=== PATIENT | female | born 1945 | race Caucasian/White ===

== ENCOUNTER 2018-08-26 09:07 | Outpatient (CLI) | payer MEDICARE, BC, SELFPAY ==
[2018-08-26 14:52] LABS: TSH (W/Ref FT4) 0.98 uIU/mL (0.358-3.74)
== END 2018-08-26 09:27 ==
PROVIDERS: PCP Family Medicine; Visit Provider Family Medicine
DX: F41.9 Anxiety disorder, unspecified (principal); I10 Essential (primary) hypertension; E04.1 Nontoxic single thyroid nodule
CPT/HCPCS: 36415; 84443

== ENCOUNTER 2018-09-24 00:42 | Outpatient (CLI) | payer MEDICARE, BC, SELFPAY ==
--- NOTE | 2018-09-24 14:13 | DI.CT_ITS ---
SYMPTOMS/DIAGNOSIS: CHRONIC SINUSITIS, J32.9 CT SCAN OF THE SINUS: CT of sinuses was performed according to protocol. There is opacification of a few ethmoid air cells bilaterally. The frontal sinuses appear clear, as do the sphenoid sinuses. There is mild mucosal thickening in the left maxillary sinus. The right maxillary sinus is nearly completely opacified. There is thickening of the wall of the right maxillary sinus, likely reflecting sequelae of chronic sinusitis. The mastoid air cells are well pneumatized. The nasal septum is predominantly midline. The left turbinate and left ostiomeatal complex is unremarkable. There is opacification of the right middle turbinate and the right ostiomeatal complex. The orbits are unremarkable. IMPRESSION: Findings of chronic sinusitis affecting the right maxillary sinus.
== END 2018-09-24 01:02 ==
PROVIDERS: PCP Family Medicine; Visit Provider Family Medicine
DX: J32.0 Chronic maxillary sinusitis (principal)
CPT/HCPCS: 70486

== ENCOUNTER 2019-02-12 02:04 | Outpatient (CLI) | payer MEDICARE, BC, SELFPAY ==
[2019-02-12 10:39] LABS: ALT 19 U/L (12-78); AST 16 U/L (15-37); Albumin 3.6 g/dL (3.4-5.0); Alkaline Phosphatase 126 U/L (46-116); BUN 23 mg/dL (7-18); Bilirubin, Total 0.4 mg/dL (0.2-1.0); CREATININE 0.82 mg/dL (0.55-1.02); Calcium 8.6 mg/dL (8.5-10.1); Chloride 105 mmol/L (98-107); Cholesterol 193 mg/dL (50-200); Glucose 87 mg/dL (70-100); HDL Cholesterol 70 mg/dL (40-60); LDL CHOLESTEROL 107 mg/dL (<100); Potassium 4.2 mmol/L (3.5-5.1); Sodium 141 mmol/L (136-145); Total Protein 6.6 g/dL (6.4-8.2); Triglyceride 76 mg/dL (30-150)
== END 2019-02-12 02:24 ==
PROVIDERS: PCP Family Medicine; Visit Provider Family Medicine
DX: I10 Essential (primary) hypertension (principal)
CPT/HCPCS: 80053; 80061; 83721

== ENCOUNTER 2019-10-22 11:37 | Outpatient (CLI) | payer MEDICARE, BC, SELFPAY ==
--- NOTE | 2019-10-22 11:32 | DI.RAD_ITS ---
EXAM: XR CHEST 2V PA LATERAL XR CHEST 2V PA LATERAL CLINICAL HISTORY: cough, chest tightness, uri, j06.9 cough, chest tightness, uri, j06.9 TECHNIQUE: 2D digital imaging was performed. COMPARISON: ABD FLAT UPRIGHT PA CHEST from 12/17/2015 FINDINGS: The heart is not enlarged. The lungs are clear and well expanded. No pleural effusion seen. Mediastin al contours appear intact. IMPRESSION: Normal chest
[2019-10-22 12:07] LABS: Abs Immature Grans 0.04 k/cumm (0.0-0.09); Absolute Basophil Count 0.05 k/cumm (0.0-0.2); Absolute Eosinophil Count 0.07 k/cumm (0.0-0.7); Absolute Lymphocyte Count 1.92 k/cumm (1.2-3.4); Absolute Monocyte Count 0.54 k/cumm (0.11-0.7); Absolute Neutrophil Count 3.11 k/cumm (1.2-6.7); Basophils % 0.9; Eosinophils % 1.2; HGB 13.8 g/dL (12.0-15.5); Immature Grans % 0.7 %; Lymphocytes % 33.5; Mean Corp. HGB Concentration 32.9 g/dL (32.0-36.0); Mean Corpuscular Hemoglobin 28.6 pg (27.0-33.0); Mean Corpuscular Volume 87.1 fL (80-95); Mean Platelet Volume 8.3 fL (8.0-11.0); Monocytes % 9.4; Neutrophils % 54.3; Platelet Count 340 x1000/uL (130-400); RBC 4.82 m/cumm (4.00-5.20); RBC Distribution Width 12.5 % (11.7-14.6); White Blood Cell Count 5.73 k/cumm (4.4-10.8)
[2019-10-22 13:10] LABS: ALT 19 U/L (14-59); AST 17 U/L (15-37); Albumin 3.9 g/dL (3.4-5.0); Alkaline Phosphatase 112 U/L (46-116); Anion Gap 11.6 mmol/L (3-11); BUN 16 mg/dL (7-18); Bilirubin, Total 0.5 mg/dL (0.2-1.0); CO2 30.4 mmol/L (21.0-32.0); CREATININE 0.73 mg/dL (0.55-1.02); Calcium 8.9 mg/dL (8.5-10.1); Chloride 99 mmol/L (98-107); Glucose 85 mg/dL (74-106); Potassium 3.4 mmol/L (3.5-5.1); Sodium 141 mmol/L (136-145); Total Protein 7.1 g/dL (6.4-8.2)
== END 2019-10-22 11:57 ==
PROVIDERS: PCP Family Medicine; Visit Provider Family Medicine
DX: R05 Cough (principal); R07.89 Other chest pain; J06.9 Acute upper respiratory infection, unspecified; I10 Essential (primary) hypertension
CPT/HCPCS: 36415; 80053; 71046; 85025

== ENCOUNTER 2019-10-22 13:37 | Outpatient (REF) | payer MEDICARE, BC, SELFPAY | END 2019-10-22 13:57 | LOC: LBN 13:37 | PROVIDERS: PCP Family Medicine; Visit Provider Family Medicine | DX: R50.9 Fever, unspecified (principal) | CPT/HCPCS: 87449 ==

== ENCOUNTER 2020-02-25 01:27 | Outpatient (CLI) | payer MEDICARE, BC, SELFPAY ==
--- NOTE | 2020-02-25 11:40 | DI.MAMMO_ITS ---
EXAM: MG MAMMO SCREENING CLINICAL HISTORY: screening,Z12.39 TECHNIQUE: Bilateral full field digital CC and MLO mammographic images were obtained with 3D tomosyn thesis and utilizing computer aided detection (CAD). COMPARISON: Available for comparison. FINDINGS: Masses/Architectural Distortion: None seen. Microcalcifications: No suspicious pleomorphic-type are seen. Skin Thickening/Nipple Retraction: None. IMPRESSION: 1. No significant interval change with no specific features of malignancy noted. 2. Unless there is more urgent need, screening mammography is recommended, as per [place] [employer] guidelines. BI-RADS Category 1 - Negative Breast Density - Category C - Heterogeneously dense The mammogram demonstrates the patient's breast tissue is dense. Dense breast tissue is very common a nd is not abnormal but dense breast tissue can make it harder to find cancer on a mammogram. Also, de nse breast tissue may increase their breast cancer risk. This information about the result of the [facility] mogram report was provided to the patient to raise their awareness. Use this report when you speak wi th the patient about their risks for breast cancer, which includes their family history. At that time , you may recommend for more screening tests (Ultrasound or MRI) as they might be useful based on the ir risk. A negative radiographic report should not delay biopsy if a dominant or clinically suspicious mass is present. Up to ten percent of cancers are not identified on mammography. A negative report may reinforce clinical impression. Adenosis and dense breasts may obscure an underlying neoplasm. False positive reports average 6 to 10%. Patient will receive a letter notifying them of these results.
== END 2020-02-25 01:47 ==
PROVIDERS: PCP Family Medicine; Visit Provider Family Medicine
DX: Z12.31 Encounter for screening mammogram for malignant neoplasm of breast (principal)
CPT/HCPCS: 77063; 77067

== ENCOUNTER 2020-02-25 02:32 | Outpatient (CLI) | payer MEDICARE, BC, SELFPAY ==
[2020-02-25 12:50] LABS: Anion Gap 8.1 mmol/L (3-11); BUN 20 mg/dL (7-18); CO2 30.9 mmol/L (21.0-32.0); CREATININE 0.98 mg/dL (0.55-1.02); Calcium 8.9 mg/dL (8.5-10.1); Chloride 103 mmol/L (98-107); Estimated GFR 55.79 (mL/min/1.73m2); Glucose 90 mg/dL (74-106); Potassium 3.6 mmol/L (3.5-5.1); Sodium 142 mmol/L (136-145)
== END 2020-02-25 02:52 ==
PROVIDERS: PCP Family Medicine; Visit Provider Family Medicine
DX: I10 Essential (primary) hypertension (principal)
CPT/HCPCS: 36415; 80048

== ENCOUNTER 2020-09-08 00:18 | Outpatient (CLI) | payer MEDICARE, BC, SELFPAY ==
--- NOTE | 2020-09-08 08:00 | DI.DEXA_ITS ---
EXAM: XR DEXA BONE DENSITY W/WO ARCHANA CLINICAL HISTORY: osteoporosis,OSTEOPENIA,M81.0 TECHNIQUE: Routine DEXA evaluation of the lumbar spine, hip, or forearm. COMPARISON: Prior DEXA scan 2007 FINDINGS: Performed on a [employer] unit. Lateral image: Advanced disc space narrowing L2-3 level. Lumbar Spine total T-score: -1.2 prior 2008 reading was 0.8 Hip total T-score:-2.0. The 2008 reading was -1.2 Independent reading of the left femoral neck Ell the T-score -2.8 Forearm total T-score: -3.2 IMPRESSION: Bone mineral density measures in the osteoporosis range. Fracture risk is high. Note: Any spine fracture indicates 5x risk for subsequent spine fracture and 2x risk for subsequent h ip fracture. World Health Organization criteria for BMD interpretation classify patients: Normal...... T- Score at or above -1.0 Osteopenic... T- Score between -1.0 and -2.5 Osteoporosis... T-Score at or below -2.5
== END 2020-09-08 00:38 ==
PROVIDERS: PCP Family Medicine; Visit Provider Family Medicine
DX: M85.88 Other specified disorders of bone density and structure, other site (principal); M81.0 Age-related osteoporosis without current pathological fracture
CPT/HCPCS: 77080

== ENCOUNTER 2020-09-12 02:56 | Outpatient (CLI) | payer MEDICARE, BC, SELFPAY ==
[2020-09-12 11:19] LABS: ALT 20 U/L (14-59); AST 21 U/L (15-37); Albumin 3.9 g/dL (3.4-5.0); Alkaline Phosphatase 82 U/L (46-116); Anion Gap 7.2 mmol/L (3-11); BUN 17 mg/dL (7-18); Bilirubin, Total 0.6 mg/dL (0.2-1.0); CO2 30.8 mmol/L (21.0-32.0); CREATININE 0.95 mg/dL (0.55-1.02); Calcium 8.6 mg/dL (8.5-10.1); Chloride 104 mmol/L (98-107); Estimated GFR 57.66 (mL/min/1.73m2); Glucose 88 mg/dL (74-106); Potassium 3.6 mmol/L (3.5-5.1); Sodium 142 mmol/L (136-145); Total Protein 6.8 g/dL (6.4-8.2)
[2020-09-12 11:41] LABS: Vitamin D 25 Total 31.5 ng/ml (30-100)
== END 2020-09-12 03:16 ==
PROVIDERS: PCP Family Medicine; Visit Provider Family Medicine
DX: I10 Essential (primary) hypertension (principal); M85.80 Other specified disorders of bone density and structure, unspecified site
CPT/HCPCS: 36415; 80053; 82306

== ENCOUNTER 2020-09-15 00:56 | Outpatient (CLI) | payer MEDICARE, BC, SELFPAY ==
--- NOTE | 2020-09-15 15:21 | DI.DEXA_ITS ---
EXAM: XR DEXA BONE DENSITY W/WO ARCHANA CLINICAL HISTORY: REPEAT FOR ARTIFACT, NO CHARGE TECHNIQUE: COMPARISON: No exams were available for comparison FINDINGS: DEXA scan of lumbar spine was performed due to artifact on prior scan of September 08. Lumbar spine scanning shows T-score 0.1, prior scan of July 05 0 8 showed lumbar T-score 0.8. IMPRESSION: Findings on lumbar spine scanning do not change the diagnosis of osteoporosis identified on scan of September 08. RADIATION DOSE DELIVERED: Total DLP
== END 2020-09-15 01:16 ==
PROVIDERS: PCP Family Medicine; Visit Provider Family Medicine
DX: M81.0 Age-related osteoporosis without current pathological fracture
CPT/HCPCS: 77080

== ENCOUNTER 2021-03-29 01:20 | Outpatient (CLI) | payer MEDICARE, BC, SELFPAY ==
--- NOTE | 2021-03-29 08:45 | DI.MAMMO_ITS ---
Exam(s) MAMMO SCREENING EXAM: MAMMO SCREENING CLINICAL HISTORY: screening,Z12.39. TECHNIQUE: Bilateral full field digital CC and MLO mammographic images were obtained with 3D tomosyn thesis and utilizing computer aided detection (CAD). COMPARISON: Prior mammograms dating back to 2011, the most recent being February 2020. FINDINGS: Benign-appearing microcalcification group posteriorly in the right breast is noted, slightly increase d but still benign appearance. There are no new spiculated masses nor malignant appearing microcalcification groups. There is no significant architectural distortion nor skin thickening-retraction. IMPRESSION: Benign findings. No radiographic evidence of malignancy. BI-RADS Category 2 - Benign Findings Breast Density - Category C - Heterogeneously dense Breast density Category C or D implies that the patient has dense breast tissue. Dense breast tissue can make it harder to find cancer on a mammogram. Dense breast tissue is also associated with an incr eased risk of breast cancer. This information about the result of the mammogram report was provided to the patient to raise their awareness. Use this report when you speak with the patient about their risks for breast cancer, which includes their family history. At that time, you may recommend additional screening tests (Ultrasoun d or MRI) as these tests may add significant information. A negative radiographic report should not delay biopsy if a dominant or clinically suspicious mass is present. Up to ten percent of cancers are not identified on mammography. A negative report may reinforce clinical impression. Adenosis and dense breasts may obscure an underlying neoplasm. False positive reports average 6 to 10%. Patient will receive a letter notifying them of these results.
== END 2021-03-29 01:40 ==
PROVIDERS: PCP Family Medicine; Visit Provider Family Medicine
DX: Z12.31 Encounter for screening mammogram for malignant neoplasm of breast (principal); R92.0 Mammographic microcalcification found on diagnostic imaging of breast; R92.8 Other abnormal and inconclusive findings on diagnostic imaging of breast
CPT/HCPCS: 77063; 77067

== ENCOUNTER 2021-07-10 20:17 | Observation (INO) | payer MEDICARE, BC, SELFPAY ==
[2021-07-10] VITALS (35 sets, daily range): BP systolic 109–156; BP diastolic 54–90; PULSE 77–104; RESP 12–27; TEMP 36.6; O2SAT 92–97
--- NOTE | 2021-07-10 20:15 | RT.EKG_ITS ---
APPROVED REPORT Exam: Resting ECG Reason for Exam: syncope Patient Location: E HR:83 bpm ECG Measurements Heart Rate 83 AXIS AZ 158 P 9 QRSd 77 QRS 28 QT 364 T 35 QTc 428 Conclusion Sinus rhythm...normal P axis, V-rate 60- 99
--- NOTE | 2021-07-10 20:51 | W.ED.GENAD ---
Discharge Plan Disposition Condition: Stable Discharge Details Chief Complaint: Dizzy/Sync Admit Date/Time: 07/11/21 00:21 Admit Provider: Franky Powell Attending Provider: Franky Powell Primary Care Provider: Georgia Rivas ED Provider: Angélica Denis Discharge Instructions Activity:: Activity as Tolerated Equipment/Supplies:: cardiac event recorder Diet:: As Tolerated Discharge Orders Discharge Orders: Discharge Order (Routine); Ordered 07/11/21 Ordered By: Margaret Gardner Discharge Data Discharge Date/Time-TO BE ENTERED AT DEPARTURE: 07/11/21 01:52 Medical Decision Making Patient is a pleasant 76-year-old female presenting today, brought in via EMS, with chief complaint of syncopal episode. She reports a prior to arrival she was eating dinner when she became lightheaded. States that this sensation lasted for approximately 30 seconds and the next thing she is she woke up on the floor. Has not had a syncopal episode historically. This episode was witnessed by her and bystanders. They noticed that she started to act unusually unable to lower her to the ground. While unconscious, patient did vomit x1 and was incontinent of stool. States that she was unconscious for only a matter of seconds. When she awoke, patient describes being confused as to why she was on the ground but otherwise returned to baseline immediately with no evidence of postictal period. States that she was served her third dosing of Midrin vaccine 2 days ago. Since then, has been having a headache posteriorly. Has been feeling fatigued and achy. Did take 2 doses of Tylenol today which did help with the headache and general malaise. Patient denied any chest pain, palpitations, shortness of breath prior to episode. Denies any abdominal pain. Denies any unusual food that she ate. Has not had any rash. On exam, patient appears nontoxic. She slightly hypertensive 136/84, vital signs otherwise stable. States that she feels lightheaded when she stands up. Normal cardiac auscultation, lungs are clear, abdomen benign. Neurologic testing is intact she does have difficulty with heel toe walking. Romberg test is normal. Her prodromal symptoms have been less concerning for cardiac etiology. Will obtain EKG as well as troponin and abundance of caution. She is having some difficulty with your toe walking and still continues to have mild amount of lightheadedness will obtain CTA of head and neck as well for potential CVA. Discussed plan with the patient who is in agreement with this plan. Positives orthostatics. FINDINGS: Brain: Age-related involutional changes and chronic microvascular ischemic disease. No evidence for acute transcortical infarct. No mass effect or midline shift. No extra-axial collection. No acute intracranial hemorrhage. Basal cisterns are patent. Cerebral ventricles: No ventriculomegaly. Paranasal sinuses: Air-fluid level within the right maxillary sinus. Mastoid air cells: Visualized mastoid air cells are well aerated. Bones/joints: Stable focal thickening of the outer table of the right frontal bone. Soft tissues: Unremarkable. IMPRESSION: 1. No evidence for acute transcortical infarct, acute intracranial hemorrhage, or mass effect. [place] Stroke Program Early CT Score (ASPECTS) = 10 2. Air-fluid level within the right maxillary sinus. Correlate clinically for acute sinusitis. CTA head and neck: FINDINGS: ANTERIOR CIRCULATION: Right internal carotid artery: Unremarkable. Intracranial segment is patent with no significant stenosis. No aneurysm. Right middle cerebral artery: Unremarkable. No occlusion or significant stenosis. No aneurysm. Right anterior cerebral artery: Unremarkable. No occlusion or significant stenosis. No aneurysm. Left internal carotid artery: Unremarkable. Intracranial segment is patent with no significant stenosis. No aneurysm. Left middle cerebral artery: Unremarkable. No occlusion or significant stenosis. No aneurysm. Left anterior cerebral artery: Unremarkable. No occlusion or significant stenosis. No aneurysm. POSTERIOR CIRCULATION: Right vertebral artery: Unremarkable. No occlusion or significant stenosis. No aneurysm. Left vertebral artery: Unremarkable. No occlusion or significant stenosis. No aneurysm. Basilar artery: Unremarkable. No occlusion or significant stenosis. No aneurysm. Right posterior cerebral artery: Unremarkable. No occlusion or significant stenosis. No aneurysm. Left posterior cerebral artery: Unremarkable. No occlusion or significant stenosis. No aneurysm. Brain: No definite mass, mass effect, or midline shift. Generalized atrophy and chronic white matter ischemic changes. There is no acute hemorrhage or acute infarct. 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 Cerebral ventricles: No ventriculomegaly. Bones/joints: Unremarkable. No acute fracture. Soft tissues: Unremarkable. IMPRESSION: No large vessel stenosis or occlusion. FINDINGS: Right common carotid artery: No stenosis. No dissection or occlusion. Right internal carotid artery: No stenosis of the extracranial segment. No dissection or occlusion. Right external carotid artery: No occlusion or stenosis of the origin. Left common carotid artery: No stenosis. No dissection or occlusion. Left internal carotid artery: No stenosis of the extracranial segment. No dissection or occlusion. Left external carotid artery: No occlusion or stenosis of the origin. Right vertebral artery: No stenosis. No dissection or occlusion. Left vertebral artery: No stenosis. No dissection or occlusion. Soft tissues: Normal. No significant soft tissue swelling. Bones/joints: No acute fracture IMPRESSION: No stenosis or occlusion. Reevaluated the patient. She reports feeling improved after IV fluids. He is no longer lightheaded with warmth. However, she continues to have difficulty with heel toe walking and balance. For this reason, I do feel that the patient would benefit from inpatient observation. Patient given aspirin as well as potassium consulted with Dr. Powell who agrees to admission for continued observation and MRI after syncopal episode with continued difficulty with tandem gait. Patient agreeable to inpatient admission. HPI General Mode of arrival: EMS. Date/Time Provider Initiated Documentation: 07/10/21 20:18. Limitations to Documentation: no limitations. Information obtained by: patient, family, EMS and RN notes reviewed. History of Present Illness 76 year old F presents to the emergency department with the chief complaint of syncopal episode, described as mild, Quality is described as other (tight discomfort), and is localized to the head (posterior, CAM was present prior to syncopal episode). Patient reports no radiation. Patient started experiencing this minute(s) and it has been constant. No relieving factors improve symptom(s), No exacerbating factors reported . Patient notes headaches and syncope; denies confusion, chest pain, cough, diaphoresis, fever/chills, nausea/vomiting, shortness of breath and weakness. Patient did receive the following treatments prior to arrival, none Related Data Home Medications Medication Instructions Recorded Confirmed hydrochlorothiazide 25 mg tablet 12.5 mg PO QAM #90 tab 03/14/21 07/10/21 lisinopril 20 mg tablet 20 mg PO DAILY #90 tab 03/14/21 07/10/21 cyclobenzaprine 5 mg PO TID PRN #15 tab 07/11/21 Previous Rx's Medication Instructions Recorded hydrochlorothiazide 25 mg tablet 12.5 mg PO QAM #90 tab 03/14/21 lisinopril 20 mg tablet 20 mg PO DAILY #90 tab 03/14/21 cyclobenzaprine 5 mg PO TID PRN #15 tab 07/11/21 Allergies Allergy/AdvReac Type Severity Reaction Status Date / Time amlodipine AdvReac Intermediate Verified 07/10/21 20:51 sulfamethoxazole AdvReac Lowers BP Verified 07/10/21 20:51 [From Bactrim] trimethoprim [From Bactrim] AdvReac Lowers BP Verified 07/10/21 20:51 General Stated Complaint: Dizzy/Sync JEROMY: 2 Review of Systems Constitutional Constitutional: Reports as per HPI, Denies chills, Denies fever(s), Denies frequent falls, Reports headache(s) (posterior) and Denies weakness Eyes Eyes: Reports as per HPI, Denies blurry vision and Denies change in vision ENT Ears, Nose, Mouth, and Throat: Reports dizziness (experienced lightheadedness prior to syncopal episode), Reports headache(s) (posterior) and Denies neck pain Cardiovascular Cardiovascular: Reports as per HPI, Denies chest pain, Denies lightheadedness, Denies radiating jaw, neck or arm pain, Denies dyspnea and Denies dyspnea on exertion Respiratory Respiratory: Reports as per HPI, Denies cough, Denies dyspnea and Denies dyspnea on exertion Gastrointestinal Gastrointestinal: Reports as per HPI, Denies abdominal pain, Denies change in bowel habits, Denies nausea and Denies vomiting Musculoskeletal Musculoskeletal: Reports as per HPI, Denies back pain, Denies myalgias, Denies muscle cramps, Denies neck pain and Denies numbness Integumentary/Breasts Skin/Breast: Reports as per HPI and Denies rash Neurologic Neurologic: Reports as per HPI, Denies abnormal movements, Denies abnormal speech, Denies confusion, Reports dizziness (experienced lightheadedness prior to syncopal episode), Denies frequent falls, Reports headache(s) (posterior), Denies localized weakness, Denies numbness, Denies sensory deficit and Denies weakness Psychiatric Psychiatric: Denies confusion [facility] Medical History Abnormal findings on diagnostic imaging of breast 02/04/13 normal f/u Abnormal sense of taste Actinic keratosis Actinic keratosis Anxiety Anxiety Atrophic vaginitis Atrophy of vagina Benign thyroid cyst Bereavement due to life event father committed suicide Burning mouth syndrome Calf muscle weakness (01/01/17) Contact dermatitis dyshidrotic eczema Cyst of thyroid (09/10/13) Degeneration of intervertebral disc (05/31/08) XR - 05/24 DDD, DJD L2-3; L5-S1 Degenerative disc disease Essential hypertension (09/11/13) 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) Fibrocystic disease of breast Foot pain Hip pain, right (01/01/17) Hypertension Interstitial cystitis Interstitial cystitis (06/11/16) Mammogram abnormal 08/15/04 Molluscum contagiosum infection 08/15/06 Molluscum contagiosum infection (08/15/06) Onychomycosis Onychomycosis (08/13/17) Osteopenia Osteopenia (08/15/03) T-scores -0.9, -1.8, -1.1 Right hip pain Sigmoid diverticulosis Sigmoid diverticulosis Temporomandibular joint disorder TMJ (temporomandibular joint syndrome) Trigeminal neuralgia unresponsive to anti-seizure medication, seen by ENT 05/2006 Trigeminal neuralgia Unspecified condition of brain (08/15/03) MRI-mult. non-specific white matter changes; repeat MRI 2005-no change URI (upper respiratory infection) Weight loss 04/09/16 Weight loss (04/09/16) White matter changes Surgical History Colonoscopy - MAC (08/18/13) SIGMOID DIVERTICULA Hx of biopsy 02/15/15 left lateral brow-shave biopsy--seborrheic keratosis; left lateral canthus-shve biopsy-seborrheic keratosis. S/P tonsillectomy and adenoidectomy Status post tonsillectomy and adenoidectomy Tonsillectomy and adenoidectomy Family History Mother , 89 Essential hypertension Heart disease Stroke Father , SUICIDE at age 84. Essential hypertension Depression Heart disease Hyperlipidemia Multiple myeloma Sister Essential hypertension Depression A-fib Maternal Grandfather , CAR ACCIDENT at age 60. No problems noted. Paternal Grandfather Depression Cancer Maternal Grandmother , CAR ACCIDENT at age 60. No problems noted. Paternal Grandmother , CHILD at age 24. No problems noted. Son Hypertension Son No problems noted. Sister Essential hypertension Depression Hypertension Social History Smoking/Tobacco Use Status: Never Second Hand Exposure: Yes Smoking risk assessment performed?: Yes Alcohol Intake: current Alcohol Intake frequency: holidays/special occasions only Counseling given: No Drug use: Never Substance use type: does not use Counseling provided: none Caregiver/Support person: No Household members: spouse Housing: house Communication Needs: None Do you need help understanding health information?: Rarely Pets and animals: No Sexually active: Yes Do you think of yourself as: straight/heterosexual Current gender identity: female What is your relationship status?: How often do you talk on the phone with friends or family?: three or more times per week How often do you get together with friends or relatives?: three or more times per week Do you belong to any clubs or organized social groups?: yes Panel score (0-1 are the most socially isolated patients): 3 Duration: 30-45 minutes/day Frequency: 5-6 times per week Priyanka/Sabianism: No preference Seatbelt use: always Drive intox 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 Do you feel safe at home: Yes Do you feel safe in your relationship?: Yes Exam Const General: cooperative, healthy appearing, comfortable, no acute distress, well developed and well groomed Nutritional Appearance: average body habitus and well nourished Orientation: alert, awake and oriented x3 HENMT Head: normal to inspection, no palpable skull fracture, normocephalic and atraumatic Ears: hearing grossly normal bilaterally, external ears normal and TM's normal bilaterally General nose exam: external nose normal Mouth: oral mucosae normal and moist mucous membranes Throat: posterior oropharynx normal Eyes General: appearance normal, both eyes and all related structures Alignment and Position: alignment normal Periorbital: periorbital findings normal Eyelids: eyelids normal Sclera: sclerae normal Cornea: corneas normal Pupils: PERRL EOM: EOM intact bilaterally Neck Neck: normal visual inspection, full ROM, no lymphadenopathy and no meningeal signs Resp Effort & Inspection: normal respiratory effort, able to speak in complete sentences and no respiratory distress Auscultation: clear to auscultation bilaterally, no rales, no rhonchi and no wheezes Cardio Rate: regular rate Rhythm: regular rhythm Heart Sounds: S1 normal and S2 normal GI Inspection: normal to inspection and non-distended Palpation: soft, no hepatosplenomegaly, not firm, no guarding, not rigid and nontender Back/Spine/Pelvis Cervical Spine: normal cervical lordosis and cervical ROM normal Skin General skin exam: no rashes or lesions noted Neuro General: patient alert, patient awake and patient oriented x3 Cranial Nerves: CN's II-XI intact bilaterally Cognition: normal cognition Speech: speech normal Gait: normal gait Motor: muscle tone normal throughout, strength 5/5 throughout, no pronator drift, no movement abnormalities noted and no fasciculations Sensory Exam: no sensory deficits noted Coordination: [id number] test normal, [id number] test normal, Romberg test normal, tandem gait abnormal, Does not sway with eyes open and rapid alternating movement UE normal Extrem General: normal to inspection, capillary refill normal, no pedal edema and no calf tenderness Psych Appearance: grossly normal and well kempt Mental Status: mental status grossly normal Speech and Movement: speech and movement normal Course Vital Signs Vital signs: Vital Signs Temperature 36.6 C 07/10/21 20:20 Pulse 79 07/10/21 20:20 Respiratory Rate 16 07/10/21 20:20 Blood Pressure 156/64 H 07/10/21 20:20 Pulse Oximetry 96 07/10/21 20:20 Temperature 36.6 C 07/10/21 20:20 Temperature Source Temporal Artery Scan 07/10/21 20:20 Pulse 79 07/10/21 20:20 Respiratory Rate 16 07/10/21 20:20 Blood Pressure 156/64 H 07/10/21 20:20 Blood Pressure Position Supine 07/10/21 20:20 Pulse Oximetry 96 07/10/21 20:20 Oxygen Delivery Method Room Air 07/10/21 20:20 Oxygen Flow Rate 0 07/10/21 20:20 Pain Level 5 07/10/21 20:20
--- NOTE | 2021-07-10 21:00 | DI.CT_ITS ---
Exam(s) CT HEAD - STROKE PROTOCOL EXAM: CT HEAD - STROKE PROTOCOL CLINICAL HISTORY: syncope, difficulty with heel/toe walking. TECHNIQUE: Imaging Protocol: Axial computed tomography images with coronal and sagittal reformatted images were created and reviewed FINDINGS: Ventricles and Extra axial spaces: Normal in size and morphology for the patient's age. Hemorrhage: None. Cerebral parenchyma: Normal. Midline shift: None. Brainstem/Cerebellum: Normal. Calvarium: Normal. Visualized Paranasal sinuses/Mastoids: Small air-fluid level right maxillary sinus. Partial opacific ation of few ethmoid sinuses. The findings are significantly improved when compared with previous si nus CT. Mastoids clear. Soft Tissues: Unremarkable. IMPRESSION: No acute intracranial process. Right maxillary air-fluid level could represent acute sinusitis.. RADIATION DOSE DELIVERED: 801.82mGy.cm Total DLP DATA REPOSITORY: All CT scans at this facility are submitted to the National Radiology Data Registry (NRDR) Dose Index Registry (DIR) with the [employer] [employer] ([employer]). RADIATION OPTIMIZATION: All CT scans at this facility use at least one of these dose optimization te chniques: automated exposure control; mA and/or kV adjustment per patient size (includes targeted exa ms where dose is matched to clinical indication); or iterative reconstruction.
[2021-07-10 21:12] LABS: Abs Immature Grans 0.01 10^3/uL (0.0-0.06); Absolute Basophil Count 0.04 10^3/uL (0.0-0.2); Absolute Eosinophil Count 0.18 10^3/uL (0.0-0.7); Absolute Lymphocyte Count 1.39 10^3/uL (1.2-3.4); Absolute Monocyte Count 0.72 10^3/uL (0.1-0.8); Basophils % 0.8; Eosinophils % 3.7; HCT 39.8 % (36.0-46.0); HGB 13.3 g/dL (11.2-15.7); Immature Grans % 0.2; Lymphocytes % 28.7; MCH 29.1 pg (27.0-33.0); MCHC 33.4 % (32.0-36.0); MCV 87.1 fL (80-95); MPV 8.4 fL (8.0-11.0); Monocytes % 14.9; Neutrophils % 51.7; Nucleated RBC 0 %; Platelet Count 232 10^3/uL (130-400); RBC 4.57 10^6/uL (3.93-5.22); RDW 12.5 % (11.7-14.6); RDW-SD 39.6 fL; WBC 4.84 10^3/uL (4.4-10.8)
[2021-07-10 21:15] LABS: Bilirubin Small (Negative); Blood Trace-intact (Negative); Clarity Clear (Clear); Glucose Negative (Negative); Ketones Trace mg/dL (Negative); Leukocyte Esterase Negative (Negative); Nitrite Negative (Negative); Specific Gravity 1.025 (1.005-1.025); Urobilinogen 0.2 EU/dL (Up TO 0.2); pH 6.5 (5-8)
[2021-07-10 21:24] LABS: Bacteria Few HPF (Negative); C & S Indicated? No/Sq. Contamination; Casts Negative LPF (Negative); Crystals Few Amorphous HPF (Negative); Epithelial Cells Many HPF (Negative); Mucus Negative (Negative); RBC 20-50 HPF (0-2)
--- NOTE | 2021-07-10 21:29 | DI.VRAD_ITS ---
PROCEDURE INFORMATION: Exam: CT Head Without Contrast Exam date and time: 07/10/2021 9:02 PM Age: 76 years old Clinical indication: Syncope and collapse; Patient HX: Syncope, difficulty with heel/toe walking TECHNIQUE: Imaging protocol: Computed tomography of the head without contrast. Other technique: STROKE PROTOCOL was implemented. COMPARISON: CT Head^SINUS MEDTRONIC (Adult) 09/24/2018 2:41 PM FINDINGS: Brain: Age-related involutional changes and chronic microvascular ischemic disease. No evidence for acute transcortical infarct. No mass effect or midline shift. No extra-axial collection. No acute intracranial hemorrhage. Basal cisterns are patent. Cerebral ventricles: No ventriculomegaly. Paranasal sinuses: Air-fluid level within the right maxillary sinus. Mastoid air cells: Visualized mastoid air cells are well aerated. Bones/joints: Stable focal thickening of the outer table of the right frontal bone. Soft tissues: Unremarkable. IMPRESSION: 1. No evidence for acute transcortical infarct, acute intracranial hemorrhage, or mass effect. [place] Stroke Program Early CT Score (ASPECTS) = 10 2. Air-fluid level within the right maxillary sinus. Correlate clinically for acute sinusitis. Dictated and Authenticated by: Ward Coffey MD. Ordering:CHRISTIANO Lindsay MD
[2021-07-10] MEDS: Normal Saline 1,000 ML 1000 ML IV (21:30)
[2021-07-10 21:50] LABS: ALT 18 U/L (14-59); AST 20 U/L (15-37); Albumin 3.7 g/dL (3.4-5.0); Alkaline Phosphatase 104 U/L (46-116); Anion Gap 8.1 mmol/L (3-11); BUN 23 mg/dL (7-18); Bilirubin, Total 0.7 mg/dL (0.2-1.0); CO2 31.9 mmol/L (21.0-32.0); CREATININE 1.1 mg/dL (0.55-1.02); Calcium 8.7 mg/dL (8.5-10.1); Chloride 100 mmol/L (98-107); Estimated GFR 48.55 (mL/min/1.73m2); Glucose 154 mg/dL (74-106); Potassium 3.1 mmol/L (3.5-5.1); Sodium 140 mmol/L (136-145); TSH 1.19 uIU/mL (0.36-3.74); Total Protein 6.8 g/dL (6.4-8.2)
[2021-07-10 22:00] LABS: Troponin I < 0.05 ng/mL (<0.06)
--- NOTE | 2021-07-10 22:00 | DI.CT_ITS ---
Exam(s) CT BRAIN NECK CTA EXAM: CT BRAIN NECK CTA CLINICAL HISTORY: syncope, difficulty with heel/toe walking. TECHNIQUE: Imaging Protocol: Axial CT angiography was performed with multi-slice acquisition and mu lti-planar and/or 3D reconstructions. CONTRAST MATERIAL: Intravenous: Omnipaque 350 Contrast volume:85 ml COMPARISON: CT ABD PELVIS WITH CONTRAST from 12/17/[address] HEAD - STROKE PROTOCOL from 07/10/[address] HEAD - STROKE PROTOCOL from 07/10/2021 FINDINGS: CT Head W/O and W contrast: Ventricles and Extra axial spaces: Normal in size and morphology for the patient's age. Hemorrhage: None. Cerebral parenchyma: Old lacunar infarct left internal capsule. No acute infarct. Midline shift: None. Brainstem/Cerebellum: Normal. Calvarium: Normal. Visualized Paranasal sinuses/Mastoids: Mild sinus disease. Soft Tissues: Unremarkable. Enhancement: Normal. CTA Brain W: Internal Carotid Arteries: Petrous: Normal. Cavernous: Normal. Cerebral: Normal. Middle Cerebral Arteries: Right: No aneurysm, occlusion or significant stenosis. Left: No aneurysm, occlusion or significant stenosis. Anterior Cerebral Arteries: Right: No aneurysm, occlusion or significant stenosis. Left: No aneurysm, occlusion or significant stenosis. Posterior cerebral Arteries: Right: No aneurysm, occlusion or significant stenosis. Left: No aneurysm, occlusion or significant stenosis. Vertebral Arteries: Right: No aneurysm, occlusion or significant stenosis. Left: No aneurysm, occlusion or significant stenosis. Basilar Artery: No aneurysm, occlusion or significant stenosis. CTA Neck W: Common Carotid: Right: No aneurysm, occlusion or significant stenosis. Left: No aneurysm, occlusion or significant stenosis. External Carotid: Right: No aneurysm, occlusion or significant stenosis. Left: No aneurysm, occlusion or significant stenosis. Internal Carotid: Right: No aneurysm, occlusion or significant stenosis. Minimal plaque. Left: No aneurysm, occlusion or significant stenosis. Minimal plaque. Vertebral Artery: Right: No aneurysm, occlusion or significant stenosis. Left: No aneurysm, occlusion or significant stenosis. Lung Apices: Normal. Bones: Degenerative changes are seen in the cervical spine. Soft Tissues: Normal. IMPRESSION: 1. Normal CTA examination of the [place]. 2. 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 No acute infarct. No mass.. 3. Minimal plaque at the common carotid bulbs bilaterally. No significant stenosis.. RADIATION DOSE DELIVERED: 1,192.05mGy.cm Total DLP DATA REPOSITORY: All CT scans at this facility are submitted to the National Radiology Data Registry (NRDR) Dose Index Registry (DIR) with the [employer] (ACR). RADIATION OPTIMIZATION: All CT scans at this facility use at least one of these dose optimization te chniques: automated exposure control; mA and/or kV adjustment per patient size (includes targeted exa ms where dose is matched to clinical indication); or iterative reconstruction.
[2021-07-10] MEDS: Omnipaque 350 MG/ML 100 ML BTL IJ (22:09)
[2021-07-10] MEDS: Normal Saline - Diluent 50 ML VIAL IV (22:10)
--- NOTE | 2021-07-10 22:37 | DI.VRAD_ITS ---
PROCEDURE INFORMATION: Exam: CT Angiography Head With Contrast, Arteriography Exam date and time: 07/10/2021 10:06 PM Age: 76 years old Clinical indication: Syncope and collapse; Patient HX: Syncope, difficulty with heel/toe walking TECHNIQUE: Imaging protocol: Computed tomography angiography of the head with contrast. Exam focused on the arteries. 3D rendering (Not supervised by radiologist): MIP and/or 3D reconstructed images were created by the technologist. COMPARISON: CT HEAD - STROKE PROTOCOL 07/10/2021 9:19 PM FINDINGS: ANTERIOR CIRCULATION: Right internal carotid artery: Unremarkable. Intracranial segment is patent with no significant stenosis. No aneurysm. Right middle cerebral artery: Unremarkable. No occlusion or significant stenosis. No aneurysm. Right anterior cerebral artery: Unremarkable. No occlusion or significant stenosis. No aneurysm. Left internal carotid artery: Unremarkable. Intracranial segment is patent with no significant stenosis. No aneurysm. Left middle cerebral artery: Unremarkable. No occlusion or significant stenosis. No aneurysm. Left anterior cerebral artery: Unremarkable. No occlusion or significant stenosis. No aneurysm. POSTERIOR CIRCULATION: Right vertebral artery: Unremarkable. No occlusion or significant stenosis. No aneurysm. Left vertebral artery: Unremarkable. No occlusion or significant stenosis. No aneurysm. Basilar artery: Unremarkable. No occlusion or significant stenosis. No aneurysm. Right posterior cerebral artery: Unremarkable. No occlusion or significant stenosis. No aneurysm. Left posterior cerebral artery: Unremarkable. No occlusion or significant stenosis. No aneurysm. Brain: No definite mass, mass effect, or midline shift. Generalized atrophy and chronic white matter ischemic changes. There is no acute hemorrhage or acute infarct. 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 Cerebral ventricles: No ventriculomegaly. Bones/joints: Unremarkable. No acute fracture. Soft tissues: Unremarkable. IMPRESSION: No large vessel stenosis or occlusion. PROCEDURE INFORMATION: Exam: CT Angiography Neck With Contrast Exam date and time: 07/10/2021 10:06 PM Age: 76 years old Clinical indication: Syncope and collapse; Patient HX: Syncope, difficulty with heel/toe walking TECHNIQUE: Imaging protocol: Computed tomography angiography of the neck with contrast. 3D rendering (Not supervised by radiologist): MIP and/or 3D reconstructed images were created by the technologist. COMPARISON: CT HEAD - STROKE PROTOCOL 07/10/2021 9:19 PM FINDINGS: Right common carotid artery: No stenosis. No dissection or occlusion. Right internal carotid artery: No stenosis of the extracranial segment. No dissection or occlusion. Right external carotid artery: No occlusion or stenosis of the origin. Left common carotid artery: No stenosis. No dissection or occlusion. Left internal carotid artery: No stenosis of the extracranial segment. No dissection or occlusion. Left external carotid artery: No occlusion or stenosis of the origin. Right vertebral artery: No stenosis. No dissection or occlusion. Left vertebral artery: No stenosis. No dissection or occlusion. Soft tissues: Normal. No significant soft tissue swelling. Bones/joints: No acute fracture. IMPRESSION: No stenosis or occlusion. REFERENCES: NASCET CRITERIA. The degree of internal carotid artery stenosis is based on NASCET criteria. Normal is no stenosis. Mild is less than 50% stenosis. Moderate is 50-69% stenosis. Severe is 70% to 99% stenosis. Total occlusion is no detectable patent lumen. Dictated and Authenticated by: Nohemi Tabor MD. Ordering:CHRISTIANO Lindsay MD
[2021-07-10] MEDS: Potassium Chloride 20 MEQ TABCR 40 MEQ PO (23:55)
[2021-07-10] MEDS: Aspirin 325 MG TAB PO (23:55)
--- NOTE | 2021-07-11 | DI.MRI_ITS ---
Exam(s) MR BRAIN WO/W EXAM: MR BRAIN WO/W CLINICAL HISTORY: spell of loss of conciousness. TECHNIQUE: Multiplanar multisequence MRI of the brain was performed. CONTRAST MATERIAL: IV Contrast: 13 ML of Dotarem contrast administered. COMPARISON: CT CT BRAIN NECK CTA from 07/10/[address] BRAIN NECK CTA from 07/10/2021 FINDINGS: VENTRICLES AND EXTRA AXIAL SPACES: Normal in size and morphology for the patient's age. HEMORRHAGE: None. CEREBRAL PARENCHYMA: Mild atrophy. Old lacunar infarct left basal ganglia/internal capsule. No focu s of restricted diffusion to suggest acute infarct. No space-occupying lesion identified. Patchy are as of high signal in the white matter consistent with sequela of chronic microvascular ischemia. MIDLINE SHIFT: None. BRAINSTEM/CEREBELLUM: Normal. Orbits: Unremarkable. ENHANCEMENT: No suspicious enhancement identified. VISUALIZED PARANASAL SINUSES/MASTOIDS: Mucosal thickening right maxillary sinus mild ethmoid sinus mu cosal thickening. Mastoid air cells are clear.. OTHER FINDINGS: Vascular flow voids are intact. Pituitary normal in size. 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 No evidence of acute infarct or mass. White matter bain es microvascular disease. DATA REPOSITORY:
--- NOTE | 2021-07-11 00:05 | HPE_ITS ---
Date of service: 07/11/21 Time of Service: 00:05 Assessment and Plan Assessment and plan (1) Loss of consciousness: Status: Acute Assessment and plan: Not entirely clear what this spell may have been. D oubt arrythmia based both on presence of prodromal symptoms and report of normal pulse at scene (viz, not Tse-Ornelas attack); though incontinence occurred the remainder of the story would not suggest seizure (ie, no post-ictal phase), though I would not entirely exclude the possibility at this point. CVA unlikely given overall story. By elimination I think the most likely explanation is an atypical vagal-like episode. Will monitor on tely, institute seizure precautions and would consider brain MRI in AM to complete work up. 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 This evening at dinner felt herself becoming woozy, that she couldn't stay upright, then slumped to side and lowered to floor. Mome ntary LOC, including incontinence of bowel and bladder, along with episode of vomiting. She was entirely lucid immediately thereafter. reports that someone checked pulse during spell and it was reported as normal. Here in ER she is reported to have been orthostatic, and potassium 3.1 noted. CTA head and neck negative, trop negative, EKG WNL. She was noted to have some difficulty with tandem gait, but exam otherwise normal. Has received 40 KCL po, IVF and ASA 325. I was asked to evaluate for admission. 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/31/08) XR - 05/24 DDD, DJD L2-3; L5-S1 Degenerative disc disease Essential hypertension (09/11/13) 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) Fibrocystic disease of breast Foot pain Hip pain, right (01/01/17) Hypertension Interstitial cystitis Interstitial cystitis (06/11/16) Mammogram abnormal 08/15/04 Molluscum contagiosum infection 08/15/06 Molluscum contagiosum infection (08/15/06) Onychomycosis Onychomycosis (08/13/17) Osteopenia Osteopenia (08/15/03) T-scores -0.9, -1.8, -1.1 Right hip pain Sigmoid diverticulosis Sigmoid diverticulosis Temporomandibular joint disorder TMJ (temporomandibular joint syndrome) Trigeminal neuralgia unresponsive to anti-seizure medication, seen by ENT 05/2006 Trigeminal neuralgia Unspecified condition of brain (08/15/03) MRI-mult. non-specific white matter changes; repeat MRI 2005-no change URI (upper respiratory infection) Weight loss 04/09/16 Weight loss (04/09/16) White matter changes Surgical History Colonoscopy - MAC (08/18/13) SIGMOID DIVERTICULA Hx of biopsy 02/15/15 left lateral brow-shave biopsy--seborrheic keratosis; left lateral canthus-shve biopsy-seborrheic keratosis. S/P tonsillectomy and adenoidectomy Status post tonsillectomy and adenoidectomy Tonsillectomy and adenoidectomy Family History Mother , 89 Essential hypertension Heart disease Stroke Father , SUICIDE at age 84. Essential hypertension Depression Heart disease Hyperlipidemia Multiple myeloma Sister Essential hypertension Depression A-fib Maternal Grandfather , CAR ACCIDENT at age 60. No problems noted. Paternal Grandfather Depression Cancer Maternal Grandmother , CAR ACCIDENT at age 60. No problems noted. Paternal Grandmother , CHILD at age 24. No problems noted. Son Hypertension Son No problems noted. Sister Essential hypertension Depression Hypertension Social History Smoking/Tobacco Use Status: Never Second Hand Exposure: Yes Smoking risk assessment performed?: Yes Alcohol Intake: current Alcohol Intake frequency: holidays/special occasions only Counseling given: No Drug use: Never Substance use type: does not use Counseling provided: none Caregiver/Support person: No Household members: spouse Housing: house Communication Needs: None Do you need help understanding health information?: Rarely Pets and animals: No Sexually active: Yes Do you think of yourself as: straight/heterosexual Current gender identity: female What is your relationship status?: How often do you talk on the phone with friends or family?: three or more times per week How often do you get together with friends or relatives?: three or more times per week Do you belong to any clubs or organized social groups?: yes Panel score (0-1 are the most socially isolated patients): 3 Duration: 30-45 minutes/day Frequency: 5-6 times per week Priyanka/Catholic: No preference Seatbelt use: always Drive 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 Do you feel safe at home: Yes Do you feel safe in your relationship?: Yes Meds Allergies and Home Medications Allergies Allergy/AdvReac Type Severity Reaction Status Date / Time amlodipine AdvReac Intermediate Verified 07/10/21 20:51 sulfamethoxazole AdvReac Lowers BP Verified 07/10/21 20:51 [From Bactrim] trimethoprim [From Bactrim] AdvReac Lowers BP Verified 07/10/21 20:51 Home Medications Medication Instructions Recorded Confirmed Type hydrochlorothiazide 25 mg tablet 12.5 mg PO QAM #90 tab 03/14/21 07/10/21 Rx lisinopril 20 mg tablet 20 mg PO DAILY #90 tab 03/14/21 07/10/21 Rx Exam Narrative Exam Narrative: Orthostatics (by myself): supine BP 156/72, pulse 86, standing 138/76, 104; 36.6, 18, 94% RA. HEENT atraumatic, no tongue bleeding or bruising; neck supple; lungs clear; heart RRR; abdomen soft and NT; extremities w/o edema; neuro Ox3, lucid, motor 5/5, sensory intact light touch, gait -- and tandem gait -- WNL Results Labs Result diagrams: 07/10/21 21:00 07/10/21 21:00 Labs: Laboratory Results - last 24 hr 07/10/21 07/10/21 07/10/21 20:30 21:00 21:00 WBC 4.84 RBC 4.57 Hgb 13.3 Hct 39.8 MCV 87.1 MCH 29.1 MCHC 33.4 RDW 12.5 Plt Count 232 MPV 8.4 Immature Gran % 0.2 Neutrophils % 51.7 Lymphocytes % 28.7 Monocytes % 14.9 Eosinophils % 3.7 Basophils % 0.8 Nucleated RBC % 0 Absolute Neutrophils 2.50 Absolute Lymphocytes 1.39 Absolute Monocytes 0.72 Absolute Eosinophils 0.18 Absolute Basophils 0.04 Sodium 140 Potassium 3.1 L Chloride 100 Carbon Dioxide 31.9 Anion Gap 8.1 BUN 23 H Creatinine 1.1 H Estimated GFR/1.73 m2 48.55 Glucose 154 H Calcium 8.7 Magnesium 2.0 Total Bilirubin 0.7 AST 20 ALT 18 Alkaline Phosphatase 104 Troponin I < 0.05 Total Protein 6.8 Albumin 3.7 TSH 1.19 Urine Color Yellow Urine Clarity Clear Urine pH 6.5 Ur Specific [place] 1.025 Urine Protein Trace H Urine Ketones Trace H Urine Blood Trace-intact H Urine Nitrite Negative Urine Bilirubin Small H Urine Urobilinogen 0.2 Ur Leukocyte Esterase Negative Urine RBC 20-50 H Urine WBC 5-10 Ur Epithelial Cells Many Urine Crystals Few Amorphous Urine Bacteria Few Urine Casts Negative Urine Mucus Negative Ur Culture Indicated? No/Sq. Contamination Urine Glucose Negative Last Vital Signs Temp 36.6 C 07/10/21 20:20 Pulse 100 H 07/10/21 23:47 Resp 16 07/10/21 23:50 BP 138/76 07/10/21 23:47 Pulse Ox 94 07/10/21 23:40
[2021-07-11 00:24] LABS: Troponin I < 0.05 ng/mL (<0.06)
[2021-07-11 00:39] LABS: Source Nasal/Nares
[2021-07-11 01:59] VITALS: BP 168/80; PULSE 82; RESP 20; TEMP 36.6; O2SAT 97
[2021-07-11 02:03] VITALS: PULSE 85
[2021-07-11 02:15] VITALS: BP 168/80; PULSE 82; RESP 20; TEMP 36.6; O2SAT 97
[2021-07-11 07:05] VITALS: PULSE 57
[2021-07-11] MEDS: hydroCHLOROthiazide 25 MG TAB 12.5 MG PO (07:37)
[2021-07-11] MEDS: Lisinopril 20 MG TAB PO (07:37)
[2021-07-11 08:43] VITALS: BP 139/88; PULSE 70; RESP 18; TEMP 36.4; O2SAT 96
--- NOTE | 2021-07-11 09:16 | INITIAL_ITS ---
- If Service Date Differs Date of service: 07/11/21 Time of Service: 09:17 Care Management Initial Assess REASON FOR HOSPITALIZATION:: LOC PAST MEDICAL HISTORY/PAST SURGICAL HISTORY:: Abnormal findings on diagnostic imaging of breast. 02/04/13 normal f/u. Abnormal sense of taste. Actinic keratosis. Actinic keratosis. Anxiety. Anxiety. Atrophic vaginitis. Atrophy of vagina. Benign thyroid cyst. Bereavement due to life event. father committed suicide. Burning mouth syndrome. Calf muscle weakness (01/01/17). Contact dermatitis. dyshidrotic eczema. Cyst of thyroid (09/10/13). Degeneration of intervertebral disc (05/31/08). XR - 05/24 DDD, DJD L2-3; L5- S1. Degenerative disc disease. Essential hypertension (09/11/13). Facial neuralgia. Facial neuralgia (04/18/17). Fibrocystic disease of breast. Foot pain. Hip pain, right (01/01/17). Hypertension. Interstitial cystitis. Interstitial cystitis (06/11/16). Mammogram abnormal. 08/15/04. Molluscum contagiosum infection. 08/15/06. Molluscum contagiosum infection (08/15/06). Onychomycosis. Onychomycosis (08/13/17). Osteopenia. Osteopenia (08/15/03). T-scores -0.9, -1.8, -1.1. Right hip pain. Sigmoid diverticulosis. Sigmoid diverticulosis. Temporomandibular joint disorder. TMJ (temporomandibular joint syndrome). Trigeminal neuralgia. unresponsive to anti-seizure medication, seen by ENT 05/2006. Trigeminal neuralgia. Unspecified condition of brain (). MRI-mult. non-specific white matter changes; repeat MRI 2005-no change. URI (upper respiratory infection). Weight loss. 04/09/16. Weight loss (04/09/16). White matter changes. Colonoscopy - MAC (08/18/13). SIGMOID DIVERTICULA. Hx of biopsy. 02/15/15 left lateral brow-shave biopsy--seborrheic keratosis; left lateral canthus-shve biopsy-seborrheic keratosis. S/P tonsillectomy and adenoidectomy. Status post tonsillectomy and adenoidectomy. Tonsillectomy and adenoidectomy PREVIOUS FUNCTIONAL STATUS/SOCIAL/FAMILY SUPPORTS:: Resides in [facility] with , Antonio. ADVANCE DIRECTIVES:: On file, Antonio as agent. Has patient been provided with info about the portal/API?: Yes Did the patient sign up for the portal?: Yes (Previously ) CODE STATUS:: Full Code INSURANCE COVERAGE / FINANCIAL ISSUES:: /BS. Medicare CURRENT HOME/COMMUNITY SERVICES/EQUIPMENT:: None, currently. PRIMARY CARE PHYSICIAN:: Georgia Rivas POTENTIAL DISCHARGE NEEDS:: Syncopal work up. PATIENT/FAMILY EDUCATION NEEDS:: Review discharge instructions, discuss Ask Me Three. ANTICIPATED BARRIERS TO DISCHARGE:: None identified. TRANSPORTATION:: With in private vehicle. PLAN:: Lis will return home when ready per MD, anticipate new health promotion coordinator, follow up with PCP and transport home via private vehicle with her . Per MD, she will have MRI and EEG today. CM continues to follow.
[2021-07-11 10:04] LABS: COVID-19 PCR Negative (Negative)
[2021-07-11 10:05] LABS: Creatine Kinase 48 U/L (26-192)
[2021-07-11 10:56] LABS: Potassium 3.3 mmol/L (3.5-5.1)
[2021-07-11] MEDS: Normal Saline Flush 10 ML SYR IVP (12:08)
[2021-07-11] MEDS: Gadoterate meglumine 20 ML VIAL 13 ML IVP (12:08)
--- NOTE | 2021-07-11 13:03 | PDOC.EEG ---
Neurology EEG EEG: [facility] Department of Neurology INPATIENT EEG REPORT Date of Recordin07/11/21 Interpreting Physician: Dr. Jahaira Gore Reason for study: Ms. Mora was admitted after an episode of loss of consciousness associated with bowel/bladder incontinence and emesis. Current Medications: Current Medications Acetaminophen (Acetaminophen 325 Mg Tab) 650 mg PO Q4H PRN PRN Dimethicone/Zinc Oxide (Rachel Protect Cream 142 Gm Tube) 0 gm TP PRN PRN Gadoterate Meglumine (Gadoterate Meglumine 20 Ml Vial) 13 ml IVP DIRECTED PENDING SALE TO [facility] Stop: 08/10/21 23:59 Last Admin: 07/11/21 12:08 Dose: 13 ml Documented by: Hydrochlorothiazide (Hydrochlorothiazide 25 Mg Tab) 12.5 mg PO QAM PENDING SALE TO [facility] Last Admin: 07/11/21 07:37 Dose: 12.5 mg Documented by: Sodium Chloride (Saline 500ml Bag) 500 mls @ 0 mls/hr IV PRN PRN IV Miscellaneous Supplies (Iv Access) 1 each IV DIRECTED PENDING SALE TO [facility] Iohexol (Omnipaque 350 Mg/Ml 100 Ml Btl) 100 ml IJ DIRECTED PENDING SALE TO [facility] Stop: 08/09/21 23:59 Last Admin: 07/10/21 22:09 Dose: 85 ml Documented by: Lisinopril (Lisinopril 20 Mg Tab) 20 mg PO DAILY PENDING SALE TO [facility] Last Admin: 07/11/21 07:37 Dose: 20 mg Documented by: Melatonin (Melatonin 3 Mg Tab) 3 - 6 mg PO HS PRN PRN Sodium Chloride (Normal Saline Flush 10 Ml Syr) 0 ml IVP PRN PRN Sodium Chloride (Normal Saline - Diluent 50 Ml Vial) 50 ml IV .FOR DI USE PENDING SALE TO [facility] Last Admin: 07/10/21 22:10 Dose: 50 ml Documented by: Sodium Chloride (Normal Saline Flush 10 Ml Syr) 10 ml IVP PRN PRN Last Admin: 07/11/21 12:08 Dose: 10 ml Documented by: METHODS: A 21 channel digitized electroencephalogram was performed in the [facility] Med/Surg Floor or ICU. The 10/20 international system of electrode placement was used and bipolar and referential electrode montages were recorded. In addition to EEG the patient was monitored for EKG and lateral/vertical eye movements. Activation procedures of photic stimulation and hyperventilation were performed if applicable. Video was used during activation procedures and during events where applicable. The duration of the recording was 30 minutes. DESCRIPTION OF EEG: The patient was noted to be awake and drowsy during the recording. During maximal wakefulness a 9-Hz posterior background rhythm was present which was well-modulated, symmetrical, reactive to eye opening, and of moderate voltage. With eye opening the background activity changed to a low voltage mixture of alpha, beta, and occasional theta range frequencies. Faster frequencies were present in the bilateral anterior head regions. There was a normal anterior-posterior voltage gradient. During drowsiness, there was attenuation of the posterior dominant background rhythm and vertex waves. No stage II sleep was recorded. Activating Procedures: Photic stimulation was performed which produced a symmetrical posterior driving response at various flash frequencies. Hyperventilation was performed with moderate effort and produced no physiological slowing of the background. EKG: EKG revealed normal sinus rhythm. INTERPRETATION: This EEG is normal during the awake and drowsy states as well as during photic stimulation and hyperventilation. PRIOR EEG: none CLINICAL CORRELATION: No focal regions of cerebral dysfunction or epileptiform activity was present. No sleep was recorded during the study which reduces the sensitivity of the exam. If seizure remains a part of the differential, consider a repeat sleep-deprived EEG or overnight ambulatory EEG. Epilepsy remains a clinical diagnosis and a normal EEG does not rule out epilepsy. Clinical correlation is advised. Jahaira Gore MD
--- NOTE | 2021-07-11 15:12 | DSE_ITS ---
Date of service: 07/11/21 Time of Service: 15:12 DS: Diagnosis Discharge Diagnosis (1) Vasovagal syncope: Status: Acute (2) Adverse effect of mRNA COVID-19 vaccine: Status: Acute Asessment and Plan: Moderna (3) Neck pain: Status: Acute (4) Old lacunar stroke without late effect: Status: Chronic Asessment and Plan: Apparently, known to the patient (5) Temporomandibular joint disorder: Status: Chronic (6) Essential hypertension: Status: Chronic (7) Anxiety: Status: Chronic (8) COVID-19 ruled out by laboratory testing: Status: Ruled-out Discharge Plan Disposition Patient Disposition: HOME Condition: Stable Discharge Details Reason For Visit: LOC Admit Date/Time: 07/11/21 00:21 Admit Provider: Franky Powell Attending Provider: Franky Powell Primary Care Provider: Georgia Rivas [facility] Course Hospital Course: Ms Mora is a 76 year old female with PMHx of hypertension, TMJ, anxiety, who had received her booster dose of the Moderna mRNA vaccine on 07/08/21 who was observed on [facility] hospitalist service from 07/10/21 until 07/11/21 having had a syncopal event after a large dinner on 07/10/21, during which she lost continence, both fecal and urine. The patient was slightly confused and vomited when she came to it, but quickly rebounded back to her normal mental status. She ruled out for ACS. She had a negative CT/CTA of the head and neck. Her brain MRI showed an old left internal capsule infarct without any evidence of acute infarcts, of which the patient states she was previously aware. She is not on any therapy for it other than antihypertensives. The patient had a negative EEG. It is felt that her syncope was likely a vasovagal event in setting of a recent mRNA vaccine booster. She is being discharged home today with a cardiac event recorder, but at this point we did not pursue an echocardiogram - this should be considered as outpatient. Additionally, the patient does report significant neck/jaw muscle discomfort since the vaccine - for this, I am prescribing a low dose of cyclobenzaprine and recommend heat/ice, whichever makes the patient feel better. She should follow up with her PCP In 1-2 weeks. She is asked not to drive for 2 weeks. Home Meds and New Rx's Prescriptions: New cyclobenzaprine 5 mg tablet 5 mg PO TID PRN (Reason: muscle spasm) Qty: 15 RF: 0 Continued hydrochlorothiazide 25 mg tablet 12.5 mg PO QAM Qty: 90 RF: 5 lisinopril 20 mg tablet 20 mg PO DAILY Qty: 90 RF: 5 Discharge Instructions Instructions: Cyclobenzaprine (By mouth), Syncope (DC), Muscle Spasm (ED) Additional Instructions: Return to the hospital with any fever, bleeding, chest pain, shortness of breath, or any recurrent fainting events. Follow up with your PCP in 1-2 weeks. No driving for 2 weeks. You may use tylenol, heat/cold for your neck pain. Referrals: Georgia Rivas MD, [place] [Primary Care Provider] - Activity:: Activity as Tolerated Equipment/Supplies:: cardiac event recorder Diet:: As Tolerated Discharge Orders Discharge Orders: Discharge Order (Routine); Ordered 07/11/21 Ordered By: Margaret Gardner Other Ambulatory Orders: Cardiac Event Recorder (Routine) Timeframe: 1 Day Facility: [facility] - Location: Respiratory Therapy Ordered By: Margaret Gardner DS: Summary Time Spent with Patient providing and/or coordinating discharge services: Greater than 30 minutes Status at Discharge Functional status at discharge: independent ambulation Overall status at discharge: patient is progressing back to baseline Mental Status: mental status grossly normal Speech and Movement: speech and movement normal Mood: anxious mood Affect: normal affect Exam Narrative Exam Narrative: General: Pleasant middle-aged female, anxious/slightly tearful, A&Ox3 HEENT: EOMI, MMM Heart: RRR, no m/r/g Lungs: CTAB Abdomen: soft, nontender, nondistended Extremities: no edema BLE's Psych Mental Status: mental status grossly normal Speech and Movement: speech and movement normal Mood: anxious mood Affect: normal affect DS: Data Vitals/I&O Vitals and I&O: Vital Signs Temperature 36.4 C L 07/11/21 08:43 Temperature Source Tympanic 07/11/21 08:43 Pulse 70 07/11/21 08:43 Pulse Rhythm Regular 07/11/21 07:41 Pulse 90 07/10/21 23:50 Respiratory Rate 18 07/11/21 08:43 Respiratory Effort Non-Labored 07/11/21 07:41 Respiratory Depth Normal 07/11/21 07:41 Respiratory Pattern Normal 07/11/21 07:41 Blood Pressure 139/88 07/11/21 08:43 Blood Pressure Mean 89 07/10/21 23:47 Blood Pressure Position Supine 07/10/21 20:20 Pulse Oximetry 96 07/11/21 08:43 Oxygen Delivery Method Room Air 07/11/21 08:43 Oxygen Flow Rate 0 07/11/21 08:43 Pain Level 0 07/11/21 08:43 Intake & Output 07/10/21 07/11/21 07/11/21 23:59 11:59 23:59 Intake Total 1000 / 1000 240 / 240 Balance 1000 / 1000 240 / 240 Weight 64.1 kg Intake: IV 1000 / 1000 Oral 240 / 240 Other: Urine Appearance Clear Data Completed and Pending Completed studies during hospitalization [Text1]: CT head: No acute intracranial process. Right maxillary air-fluid level could represent acute sinusitis.. CTA head/neck: 1. Normal CTA examination of the [place]. 2. 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 No acute infarct. No mass.. 3. Minimal plaque at the common carotid bulbs bilaterally. No significant stenosis.. MRI brain: Old left internal capsule lacunar infarct. No evidence of acute infarct or mass. White matter changes microvascular disease. EEG: This EEG is normal during the awake and drowsy states as well as during photic stimulation and hyperventilation. Labs on day of discharge: Labs from last 24 hours 07/11/21 07/11/21 07/10/21 09:35 09:30 23:57 WBC RBC Hgb Hct MCV MCH MCHC RDW Plt Count MPV Immature Gran % Neutrophils % Lymphocytes % Monocytes % Eosinophils % Basophils % Nucleated RBC % Absolute Neutrophils Absolute Lymphocytes Absolute Monocytes Absolute Eosinophils Absolute Basophils Sodium Potassium 3.3 L Chloride Carbon Dioxide Anion Gap BUN Creatinine Estimated GFR/1.73 m2 Glucose Calcium Magnesium Total Bilirubin AST ALT Alkaline Phosphatase Creatine Kinase 48 Troponin I < 0.05 Total Protein Albumin TSH Urine Color Urine Clarity Urine pH Ur Specific Sayre Urine Protein Urine Ketones Urine Blood Urine Nitrite Urine Bilirubin Urine Urobilinogen Ur Leukocyte Esterase Urine RBC Urine WBC Ur Epithelial Cells Urine Crystals Urine Bacteria Urine Casts Urine Mucus Ur Culture Indicated? Urine Glucose COVID-19 Source SARS-CoV-2 (PCR) 07/10/21 07/10/21 07/10/21 21:00 21:00 20:30 WBC 4.84 RBC 4.57 Hgb 13.3 Hct 39.8 MCV 87.1 MCH 29.1 MCHC 33.4 RDW 12.5 Plt Count 232 MPV 8.4 Immature Gran % 0.2 Neutrophils % 51.7 Lymphocytes % 28.7 Monocytes % 14.9 Eosinophils % 3.7 Basophils % 0.8 Nucleated RBC % 0 Absolute Neutrophils 2.50 Absolute Lymphocytes 1.39 Absolute Monocytes 0.72 Absolute Eosinophils 0.18 Absolute Basophils 0.04 Sodium 140 Potassium 3.1 L Chloride 100 Carbon Dioxide 31.9 Anion Gap 8.1 BUN 23 H Creatinine 1.1 H Estimated GFR/1.73 m2 48.55 Glucose 154 H Calcium 8.7 Magnesium 2.0 Total Bilirubin 0.7 AST 20 ALT 18 Alkaline Phosphatase 104 Creatine Kinase Troponin I < 0.05 Total Protein 6.8 Albumin 3.7 TSH 1.19 Urine Color Yellow Urine Clarity Clear Urine pH 6.5 Ur Specific Sayre 1.025 Urine Protein Trace H Urine Ketones Trace H Urine Blood Trace-intact H Urine Nitrite Negative Urine Bilirubin Small H Urine Urobilinogen 0.2 Ur Leukocyte Esterase Negative Urine RBC 20-50 H Urine WBC 5-10 Ur Epithelial Cells Many Urine Crystals Few Amorphous Urine Bacteria Few Urine Casts Negative Urine Mucus Negative Ur Culture Indicated? No/Sq. Contamination Urine Glucose Negative COVID-19 Source SARS-CoV-2 (PCR) 07/10/21 00:35 WBC RBC Hgb Hct MCV MCH MCHC RDW Plt Count MPV Immature Gran % Neutrophils % Lymphocytes % Monocytes % Eosinophils % Basophils % Nucleated RBC % Absolute Neutrophils Absolute Lymphocytes Absolute Monocytes Absolute Eosinophils Absolute Basophils Sodium Potassium Chloride Carbon Dioxide Anion Gap BUN Creatinine Estimated GFR/1.73 m2 Glucose Calcium Magnesium Total Bilirubin AST ALT Alkaline Phosphatase Creatine Kinase Troponin I Total Protein Albumin TSH Urine Color Urine Clarity Urine pH Ur Specific Sayre Urine Protein Urine Ketones Urine Blood Urine Nitrite Urine Bilirubin Urine Urobilinogen Ur Leukocyte Esterase Urine RBC Urine WBC Ur Epithelial Cells Urine Crystals Urine Bacteria Urine Casts Urine Mucus Ur Culture Indicated? Urine Glucose COVID-19 Source Nasal/Nares SARS-CoV-2 (PCR) Negative [facility] Medical History Abnormal findings on diagnostic imaging of breast 02/04/13 normal f/u Abnormal sense of taste Actinic keratosis Actinic keratosis Anxiety Anxiety Atrophic vaginitis Atrophy of vagina Benign thyroid cyst Bereavement due to life event father committed suicide Burning mouth syndrome Calf muscle weakness (01/01/17) Contact dermatitis dyshidrotic eczema Cyst of thyroid (09/10/13) Degeneration of intervertebral disc (05/31/08) XR - 05/24 DDD, DJD L2-3; L5-S1 Degenerative disc disease Essential hypertension (09/11/13) 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) Fibrocystic disease of breast Foot pain Hip pain, right (01/01/17) Hypertension Interstitial cystitis Interstitial cystitis (06/11/16) Mammogram abnormal 08/15/04 Molluscum contagiosum infection 08/15/06 Molluscum contagiosum infection (08/15/06) Onychomycosis Onychomycosis (08/13/17) Osteopenia Osteopenia (08/15/03) T-scores -0.9, -1.8, -1.1 Right hip pain Sigmoid diverticulosis Sigmoid diverticulosis Temporomandibular joint disorder TMJ (temporomandibular joint syndrome) Trigeminal neuralgia unresponsive to anti-seizure medication, seen by ENT 05/2006 Trigeminal neuralgia Unspecified condition of brain (08/15/03) MRI-mult. non-specific white matter changes; repeat MRI 2005-no change URI (upper respiratory infection) Weight loss 04/09/16 Weight loss (04/09/16) White matter changes Surgical History Colonoscopy - MAC (08/18/13) SIGMOID DIVERTICULA Hx of biopsy 02/15/15 left lateral brow-shave biopsy--seborrheic keratosis; left lateral canthus-shve biopsy-seborrheic keratosis. S/P tonsillectomy and adenoidectomy Status post tonsillectomy and adenoidectomy Tonsillectomy and adenoidectomy Family History Mother , 89 Essential hypertension Heart disease Stroke Father , SUICIDE at age 84. Essential hypertension Depression Heart disease Hyperlipidemia Multiple myeloma Sister Essential hypertension Depression A-fib Maternal Grandfather , CAR ACCIDENT at age 60. No problems noted. Paternal Grandfather Depression Cancer Maternal Grandmother , CAR ACCIDENT at age 60. No problems noted. Paternal Grandmother , CHILD at age 24. No problems noted. Son Hypertension Son No problems noted. Sister Essential hypertension Depression Hypertension Social History Smoking/Tobacco Use Status: Never Second Hand Exposure: Yes Smoking risk assessment performed?: Yes Alcohol Intake: current Alcohol Intake frequency: holidays/special occasions only Counseling given: No Drug use: Never Substance use type: does not use Counseling provided: none Caregiver/Support person: No Household members: spouse Housing: house Communication Needs: None Do you need help understanding health information?: Rarely Pets and animals: No Sexually active: Yes Do you think of yourself as: straight/heterosexual Current gender identity: female What is your relationship status?: How often do you talk on the phone with friends or family?: three or more times per week How often do you get together with friends or relatives?: three or more times per week Do you belong to any clubs or organized social groups?: yes Panel score (0-1 are the most socially isolated patients): 3 Duration: 30-45 minutes/day Frequency: 5-6 times per week Priyanka/Mandaeism: No preference Seatbelt use: always Drive intox or ride w/intox water taxi driver: No Do you feel safe at home: Yes Do you feel safe in your relationship?: Yes
--- NOTE | 2021-07-11 17:10 | CHAPLAIN ---
Lis was sitting up in the edge of her bed, trying to get the gunk out of her hair that had been used to afix monitor. She passed out a dinner for her 's band last night, and is awaiting answers from tests to determine why. She seems to comfortable being here, but is anxious to have some answers.
--- NOTE | 2021-08-14 11:10 | W.CARDEVENT ---
Date of service: 08/14/21 Time of Service: 11:11 Cardiac Event Recorder Referring Provider:: Franky Powell Indications:: Syncope Cardiac Event Note: This is a 30-day event monitor, ordered for syncope. The patient was monitored for a total duration of 20 days and 12 hours Rhythm throughout was sinus, with an average heart rate of 67. Minimum was 56, maximum 109 There was no atrial fibrillation, no high-grade AV block, no pauses greater than 3 seconds Patient symptoms corresponded to sinus rhythm at a rate of 62
== END 2021-07-11 16:35 | disposition home or self-care (01) ==
LOC: ER 07-11 00:38 → MS 07-11 01:58
PROVIDERS: Emergency Medicine; Internal Medicine; Admitting Provider General Practice; Emergency Provider Physician Assistant; PCP Family Medicine; Visit Provider General Practice
DX: R55 Syncope and collapse (principal); Z20.822 Contact with and (suspected) exposure to COVID-19; T50.B95A Adverse effect of other viral vaccines, initial encounter; Y84.8 Other medical procedures as the cause of abnormal reaction of the patient, or of later complication, without mention of misadventure at the time of the procedure; Z86.73 Personal history of transient ischemic attack (TIA), and cerebral infarction without residual deficits; F41.9 Anxiety disorder, unspecified; I10 Essential (primary) hypertension; M54.2 Cervicalgia; Z79.899 Other long term (current) drug therapy; M26.629 Arthralgia of temporomandibular joint, unspecified side; K57.30 Diverticulosis of large intestine without perforation or abscess without bleeding; G50.0 Trigeminal neuralgia
CPT/HCPCS: 36415; 70496; 70498; 70553; 80053; 82550; 87635; 93005; 93270; 95816; 95819; 96360; 99285; 70450; 81003; 81015; 83735; 84132; 84443; 84484; 85025; 93010; 99217; 99219; G0378; J3490

== ENCOUNTER 2021-07-20 02:59 | Outpatient (CLI) | payer MEDICARE, BC, SELFPAY ==
[2021-07-21 10:45] LABS: Lyme Ab w Rflx to Lyme Confirm Negative (Negative)
[2021-07-22 23:36] LABS: Anaplasma phagocytophilum Negative (Negative); B. miyamotoi PCR Negative (Negative); Babesia divergens/MO-1 Negative (Negative); Babesia duncani Negative (Negative); Babesia microti Negative (Negative); Ehrlichia chaffeensis Negative (Negative); Ehrlichia ewingii/canis Negative (Negative); Ehrlichia muris eauclairensis Negative (Negative)
== END 2021-07-20 03:00 | disposition home or self-care (01) ==
LOC: LBO 02:59
PROVIDERS: PCP Family Medicine; Visit Provider Family Medicine
DX: W57.XXXA Bitten or stung by nonvenomous insect and other nonvenomous arthropods, initial encounter (principal); T14.8XXA Other injury of unspecified body region, initial encounter
CPT/HCPCS: 36415; 87798; 86618

== ENCOUNTER 2021-08-14 11:10 | Outpatient (CLI) | payer MEDICARE, BC, SELFPAY | END 2021-08-14 11:11 | LOC: CARDO 08-21 11:31 | PROVIDERS: PCP Family Medicine; Referring Provider General Practice; Visit Provider Internal Medicine Cardiovascular Disease | DX: R55 Syncope and collapse (principal) | CPT/HCPCS: 93272 ==

== ENCOUNTER 2021-08-30 00:07 | Outpatient (CLI) | payer MEDICARE, BC, SELFPAY ==
--- NOTE | 2021-08-30 10:26 | DI.US_ITS ---
APPROVED REPORT EXAM: Comprehensive 2D, Doppler, and color-flow Echocardiogram Patient Location: Out-Patient Transporter Radiology: Xochilt Mcgee RDCS (AE) Indications: HTN Other Information Study Quality: Good Conclusion Normal left ventricular wall thickness and chamber size. Estimated ejection fraction is 60%. There are no segmental wall motion abnormalities Normal right ventricular size and systolic function Both atria are normal in size There are no structural or hemodynamically significant valvular abnormalities Wall motion Left Ventricle The left ventricle is normal size. The left ventricular systolic function is normal. The left ventric ular ejection fraction is within the normal range. There is normal left ventricular wall thickness. T here is normal LV segmental wall motion. There is no ventricular septal defect visualized. LVEF is 60 %. Right Ventricle The right ventricle is normal size. The right ventricular systolic function is normal. The RVSP is 22 .6_ mmHg. Atria The left atrium size is normal. The right atrium size is normal. The interatrial septum is intact wit h no evidence for an atrial septal defect. Aortic Valve The aortic valve is normal in structure. Aortic valve is trileaflet. There is no aortic valvular sten osis. No aortic regurgitation is present. Mitral Valve The mitral valve is normal in structure. No evidence of mitral valve stenosis. Trace to mild mitral r egurgitation. Tricuspid Valve The tricuspid valve is normal in structure. There is no tricuspid valve stenosis. Trace tricuspid reg urgitation. Pulmonic Valve The pulmonary valve is normal in structure. There is no pulmonic valvular stenosis. There is no pulmo calista valvular regurgitation. Great Vessels The aortic root is normal in size. The ascending aorta is normal in size. Aortic arch is not well vis ualized. IVC is normal in size and collapses >50% with inspiration. Pericardium There is no pericardial effusion. 2D Dimensions IVSD d PLAX 0.85 cm F: 0.6-1.0 LV Vol A2C d MOD 56.4 mL LVPW d PLAX 0.84 cm F: 0.6 - 1.0 LV Vol A4C d MOD 70.2 mL LVID d PLAX 4.15 cm F: 3.8 - 5.2 LA vol/ BSA A2C s A-L 15.1 mL/m2 LVDs 2.65 cm F: 2.2 - 3.5 LA vol/ BSA A4C s A-L 18.5 mL/m2 Ao Root d 2.51 cm F: 2.7 - 3.3 LA Vol/ BSA Biplane s A-L 16.9 mL/m2 RA Area A4C 10.97 cm2 LA Area A4C s MOD 13.21 cm2 RA Vol/ BSA A4C s A-L 13.9 mL/m2 LA Area A2C s MOD 11.78 cm2 Ao Asc Diam d 3.30 cm F: 2.3 - 3.1 LV EF A4C MOD 58.4 % LV EF Teichholz 65.9 % LV EF A2C MOD 60.6 % LVEF (García's) 58.55 % F: 54 - 74 LV EF Biplane MOD 58.5 % LV Volume 49.65 mL F: 46 - 106 SV 36.76 mL LV Volume Index 28.86 mL/m2 F: 29 - 61 SV Index 21.38 mL/m2 LV Vol Biplane MOD 62.8 mL FS 35.85 % M-Mode TAPSE 2.53 cm (M/F) >1.7 LV Diastology MV E' medial 0.071 (>0.07 m/s) E/A Ratio 0.7 LV E/e MED 7.25 (<14) MV E Vmax 0.51 (0.4-1.3 m/s) MV E' lateral 0.070 (>0.1 m/s) MV A Vmax 0.75 (0.4-1.3 m/s) LV E/e LAT 7.35 (<14) MV E/A Ratio 0.66 MV E/E' medial 7.26 MV E/E' lateral 7.39 Aortic Valve LVOT Area 2.96 cm2 AoV Area Vmax 2.60 cm2 LVOT Vmax 1.05 m/s AoV Area/ BSA (Vmax) 1.52 cm2/m2 LVOT Mean Ethan. 0.68 m/s COREEN Mean Ethan. 2.63 cm2 LVOT Peak Grad 4.4 mmHg COREEN Mean Ethan. Index 1.53 cm2/m2 LVOT Mean Grad 2.2 mmHg LVOT VTI 0.227 m LVOT Diam s 1.90 cm AoV Vmax 1.20 m/s Velocity Ratio 0.87 AoV Mean Ethan. 0.77 m/s AoV Peak Grad 5.7 mmHg LVOT SV 67.34 mL AoV Mean Grad 2.8 mmHg AoV VTI 0.211 m AoV Area VTI 3.19 cm2 AoV Area/ BSA (VTI) 1.86 cm/m2 Mitral Valve MV DT 312 (160-240 msec) MV PHT 91 msec MV Area PHT 2.43 cm2 MV VTI 0.248 m MV Area VTI 2.72 (4.0-6.0 cm2) Pulmonary Valve PV Vmax 0.86 (0.5-1.5 m/s) RVOT Peak Gr. 2.11 mmHg PV Peak Grad 2.9 mmHg RVOT Mean Gr. 1.15 mmHg PV Mean Grad 1.6 mmHg RVOT VTI 0.156 m PV VTI 0.191 m RVOT Vmax 0.73 m/s Tricuspid Valve TR Peak Grad 19.5 mmHg TR Vmax 2.21 m/s RA Pressure 3.00 mmHg RVSP (TR) 22.6 mmHg
== END 2021-08-30 00:27 ==
PROVIDERS: PCP Family Medicine; Visit Provider Family Medicine
DX: I10 Essential (primary) hypertension (principal)
CPT/HCPCS: 93306

== ENCOUNTER 2022-02-05 03:52 | Outpatient (CLI) | payer MEDICARE, SELFPAY ==
[2022-02-05 10:32] LABS: ALT 28 U/L (14-59); AST 24 U/L (15-37); Albumin 3.8 g/dL (3.4-5.0); Alkaline Phosphatase 101 U/L (46-116); Anion Gap 8.5 mmol/L (3-11); BUN 23 mg/dL (7-18); Bilirubin, Total 0.7 mg/dL (0.2-1.0); CO2 29.5 mmol/L (21.0-32.0); Calcium 8.8 mg/dL (8.5-10.1); Chloride 103 mmol/L (98-107); Glucose 91 mg/dL (74-106); Potassium 3.4 mmol/L (3.5-5.1); Sodium 141 mmol/L (136-145)
== END 2022-02-05 03:53 | disposition home or self-care (01) ==
LOC: LBO 03:52
PROVIDERS: PCP Family Medicine; Visit Provider Family Medicine
DX: I10 Essential (primary) hypertension (principal)
CPT/HCPCS: 36415; 80053

== ENCOUNTER 2022-09-06 02:22 | Outpatient (CLI) | payer MEDICARE, SELFPAY ==
[2022-09-06 15:16] LABS: HCT 40.3 % (36.0-46.0); HGB 13.2 g/dL (11.2-15.7); MCH 28.7 pg (27.0-33.0); MCHC 32.8 % (32.0-36.0); MCV 88 fL (80-95); MPV 8.2 fL (8.0-11.0); Platelet Count 304 10^3/uL (130-400); RDW 12.7 % (11.7-14.6); RDW-SD 40.9 fL; WBC 8.29 10^3/uL (4.4-10.8)
[2022-09-06 15:56] LABS: Anion Gap 6.2 mmol/L (3-11); BUN 22 mg/dL (7-18); CO2 30.8 mmol/L (21.0-32.0); CREATININE 1.1 mg/dL (0.55-1.02); Calcium 8.6 mg/dL (8.5-10.1); Chloride 103 mmol/L (98-107); Glucose 102 mg/dL (74-106); Potassium 3.1 mmol/L (3.5-5.1); Sodium 140 mmol/L (136-145); TSH (W/Ref FT4) 0.88 uIU/mL (0.36-3.74)
[2022-09-06 16:12] LABS: Iron 32 ug/dL (50-170)
[2022-09-06 16:28] LABS: Ferritin 116 ng/mL (8-252)
== END 2022-09-06 02:23 | disposition home or self-care (01) ==
LOC: LBO 02:22
PROVIDERS: PCP Family Medicine; Visit Provider Family Medicine
DX: L65.9 Nonscarring hair loss, unspecified (principal); E87.6 Hypokalemia; L98.9 Disorder of the skin and subcutaneous tissue, unspecified
CPT/HCPCS: 36415; 80048; 85027; 82728; 83540; 84443

== ENCOUNTER 2022-11-20 01:29 | Outpatient (CLI) | payer MEDICARE, SELFPAY ==
--- NOTE | 2022-11-20 08:00 | DI.DEXA_ITS ---
Exam(s) XR DEXA BONE DENSITY W/WO ARCHANA EXAM: XR DEXA BONE DENSITY W/WO ARCHANA CLINICAL HISTORY: osteoporosis,m81.0 TECHNIQUE: Routine DEXA evaluation of the lumbar spine, hip, or forearm. COMPARISON: CR XR DEXA BONE DENSITY W/WO ARCHANA from 09/15/2020 FINDINGS: Performed on a HoloAccion unit. Lateral image: No compression fracture evident. Lumbar Spine total T-score: 0.3. Prior reading August 2020 was 0.1 Hip total T-score:-2.5. Prior reading August 2020 was -2.0 Independent reading at the level of the femoral neck yields T-score of -3.1 Forearm total T-score: -2.8 IMPRESSION: Bone mineral density measures in the osteoporosis range. Fracture risk is high. Note: Any spine fracture indicates 5x risk for subsequent spine fracture and 2x risk for subsequent h ip fracture. World Health Organization criteria for BMD interpretation classify patients: Normal...... T- Score at or above -1.0 Osteopenic... T- Score between -1.0 and -2.5 Osteoporosis... T-Score at or below -2.5
== END 2022-11-20 01:49 ==
PROVIDERS: PCP Family Medicine; Visit Provider Family Medicine
DX: M81.0 Age-related osteoporosis without current pathological fracture (principal)
CPT/HCPCS: 77080

== ENCOUNTER 2022-12-03 03:45 | Outpatient (CLI) | payer MEDICARE, SELFPAY ==
[2022-12-03 10:06] LABS: ALT 24 U/L (14-59); AST 22 U/L (15-37); Alkaline Phosphatase 103 U/L (46-116); Anion Gap 9.2 mmol/L (3-11); BUN 21 mg/dL (7-18); Bilirubin, Total 0.6 mg/dL (0.2-1.0); CO2 30.8 mmol/L (21.0-32.0); Chloride 101 mmol/L (98-107); Estimated GFR 58.75 (mL/min/1.73m2); Ferritin 140 ng/mL (8-252); Glucose 93 mg/dL (74-106); Sodium 141 mmol/L (136-145); Total Protein 7.7 g/dL (6.4-8.2)
[2022-12-03 10:20] LABS: Iron 77 ug/dL (50-170)
== END 2022-12-03 03:46 | disposition home or self-care (01) ==
LOC: LBO 03:45
PROVIDERS: PCP Family Medicine; Visit Provider Family Medicine
DX: E87.6 Hypokalemia (principal); D50.9 Iron deficiency anemia, unspecified
CPT/HCPCS: 36415; 80053; 82728; 83540

== ENCOUNTER 2023-01-29 01:01 | Outpatient (CLI) | payer MEDICARE, SELFPAY ==
--- NOTE | 2023-01-29 07:30 | DI.MAMMO_ITS ---
Exam(s) MAMMO SCREENING EXAM: MAMMO SCREENING CLINICAL HISTORY: screening,Z12.39 TECHNIQUE: Bilateral full field digital CC and MLO mammographic images were obtained with 3D tomosyn thesis and utilizing computer aided detection (CAD). COMPARISON: Available for comparison. FINDINGS: Masses/Architectural Distortion: There is a question of a 7 mm nodule in the posterior central left b reast on the MLO view. No areas of architectural distortion are seen. Microcalcifications: No suspicious pleomorphic-type are seen. Skin Thickening/Nipple Retraction: None. IMPRESSION: 1. Question of a new 7 mm nodule in the posterior central left breast best appreciated on the MLO vie w. 2. This area should be further evaluated with a spot compression view. Ultrasound may be indicated a t that time. BI-RADS Category 0 - Assessment Incomplete: Need additional imaging evaluation Breast Density - Category C - Heterogeneously dense Breast density category C or D implies that the patient has dense breast tissue. Dense breast tissue is very common and is not abnormal but dense breast tissue can make it harder to find cancer on a ma mmogram. Also, dense breast tissue may increase their breast cancer risk. This information about the result of the mammogram report was provided to the patient to raise their awareness. Use this report when you speak with the patient about their risks for breast cancer, which includes their family hist ory. At that time, you may recommend for more screening tests (Ultrasound or MRI) as they might be us eful based on their risk. A negative radiographic report should not delay biopsy if a dominant or clinically suspicious mass is present. Up to ten percent of cancers are not identified on mammography. A negative report may reinforce clinical impression. Adenosis and dense breasts may obscure an underlying neoplasm. False positive reports average 6 to 10%. Patient will receive a letter notifying them of these results.
== END 2023-01-29 01:21 ==
LOC: DI 01:01
PROVIDERS: PCP Family Medicine; Visit Provider Family Medicine
DX: Z12.31 Encounter for screening mammogram for malignant neoplasm of breast (principal); R92.8 Other abnormal and inconclusive findings on diagnostic imaging of breast
CPT/HCPCS: 77063; 77067

== ENCOUNTER 2023-02-05 00:58 | Outpatient (CLI) | payer MEDICARE, SELFPAY ==
--- NOTE | 2023-02-05 | DI.US_ITS ---
Exam(s) MG MAMMO SCREEN CALL BACK UNI US BREAST LT COMPLETE EXAM: MG MAMMO SCREEN CALL BACK UNI and U/S breast LT complete CLINICAL HISTORY: 7 MM NODULE POSTERIOR CENTRAL LT BREAST. TECHNIQUE: Craniocaudal and mediolateral oblique Full Field Digital Mammography views of the left br east with Computer Aided Diagnosis followed by Tomosynthesis and left breast ultrasound. COMPARISON: Comparison is made with prior examinations. FINDINGS: Mammography/Tomosynthesis: Masses/Architectural Distortion: The identified area on the original examination is rendered less con cerning on the additional views. No suspicious masses or areas of architectural distortion are seen. Microcalcifictions: No suspicious pleomorphic-type are seen. Skin Thickening/Nipple Retraction: None. Complete left breast US: Echotexture: Normal appearance of the glandular tissue. Shadowing: There is a echogenic focus at 6 o'clock position of the left breast corresponding to a edda cifications seen on the mammogram. Cyst: There are cysts seen at the 4 o'clock position of the left breast 2 cm from the nipple. Solid lesions: None seen. Ductal dilation: None. IMPRESSION: 1. No evidence of malignancy is noted. 2. Unless there is more urgent need, follow-up screening mammography is recommended, as per [place] [employer] guidelines. 3. The findings were discussed with the patient on the date of the examination. BI-RADS Category 2 - Benign Findings Breast Density - Category C - Heterogeneously dense Breast density Category C or D implies that the patient has dense breast tissue. Dense breast tissue can make it harder to find cancer on a mammogram. Dense breast tissue is also associated with an incr eased risk of breast cancer. This information about the result of the mammogram report was provided to the patient to raise their awareness. Use this report when you speak with the patient about their risks for breast cancer, which includes their family history. At that time, you may recommend additional screening tests (Ultrasoun d or MRI) as these tests may add significant information. A negative radiographic report should not delay biopsy if a dominant or clinically suspicious mass is present. Up to ten percent of cancers are not identified on mammography. A negative report may reinforce clinical impression. Adenosis and dense breasts may obscure an underlying neoplasm. False positive reports average 6 to 10%. Patient will receive a letter notifying them of these results.
== END 2023-02-05 01:18 ==
PROVIDERS: PCP Family Medicine; Visit Provider Family Medicine
DX: Z12.31 Encounter for screening mammogram for malignant neoplasm of breast (principal); R92.8 Other abnormal and inconclusive findings on diagnostic imaging of breast
CPT/HCPCS: 76642; 77063; 77067

== ENCOUNTER 2023-03-21 09:41 | Outpatient (CLI) | payer MEDICARE, SELFPAY ==
[2023-03-21 12:25] LABS: HCT 41.7 % (36.0-46.0); HGB 13.9 g/dL (11.2-15.7); MCH 28.7 pg (27.0-33.0); MCHC 33.3 % (32.0-36.0); MCV 86 fL (80-95); MPV 8.7 fL (8.0-11.0); Platelet Count 284 10^3/uL (130-400); RBC 4.85 10^6/uL (3.93-5.22); RDW 12.5 % (11.7-14.6); RDW-SD 39.6 fL; WBC 5.66 10^3/uL (4.4-10.8)
[2023-03-21 12:42] LABS: Iron 83 ug/dL (50-170)
[2023-03-21 12:52] LABS: ALT 20 U/L (14-59); AST 21 U/L (15-37); Albumin 3.7 g/dL (3.4-5.0); Alkaline Phosphatase 92 U/L (46-116); Anion Gap 8.3 mmol/L (3-11); BUN 18 mg/dL (7-18); Bilirubin, Total 0.6 mg/dL (0.2-1.0); CO2 29.7 mmol/L (21.0-32.0); CREATININE 0.9 mg/dL (0.55-1.02); Chloride 102 mmol/L (98-107); Estimated GFR 66.67 (mL/min/1.73m2); Ferritin 126 ng/mL (8-252); Glucose 96 mg/dL (74-106); Potassium 3.3 mmol/L (3.5-5.1); Sodium 140 mmol/L (136-145); Total Protein 7.4 g/dL (6.4-8.2)
== END 2023-03-21 09:42 | disposition home or self-care (01) ==
LOC: LOS 09:42
PROVIDERS: PCP Family Medicine; Referring Provider Family Medicine; Visit Provider Family Medicine
DX: D50.9 Iron deficiency anemia, unspecified (principal); E87.6 Hypokalemia; I10 Essential (primary) hypertension
CPT/HCPCS: 36415; 80053; 85027; 82728; 83540

== ENCOUNTER → 2023-06-12 01:08 | Outpatient (CLI) | payer MEDICARE, SELFPAY ==
--- NOTE | 2023-06-12 07:41 | DI.CT_ITS ---
Exam(s) CT CHEST PE CTA EXAM: CT CHEST PE CTA CLINICAL HISTORY: ? pe,covid,sob,chest pain,r07.89,r06.02,u07.1. TECHNIQUE: Imaging Protocol: Axial CT angiography was performed with multi-slice acquisition and mu lti-planar and/or 3D reconstructions. CONTRAST MATERIAL: Intravenous: Omnipaque 350 contrast volume:100 mL COMPARISON: CT ABD PELVIS WITH CONTRAST from 06/29/2010 CT ABD PELVIS WITH CONTRAST from 12/17/2015 CR XR CHEST 2V PA LATERAL from 10/22/[address] BRAIN NECK CTA from 07/10/2021 FINDINGS: Tracheobronchial tree: Patent where visualized. Pulmonary parenchyma: No consolidation or dominant measurable mass. No architectural distortion. Pulmonary Arteries: No evidence of filling defect to suggest pulmonary emboli. Mediastinum and Selena: No dominant adenopathy or fluid collection. The esophagus is unremarkable. Visualized thyroid gland: Unremarkable. Pleura: No effusion or pneumothorax. Heart: Mild cardiomegaly. No coronary artery calcifications are seen. There is a small pericardial ef fusion. Aorta: Thoracic aorta non-dilated. No evidence of dissection. Atherosclerosis. Upper abdomen: Bilateral renal cysts are again seen. No follow-up is recommended. Soft tissues: Unremarkable. Bones: Within normal limits for the patient's age. IMPRESSION: No evidence of pulmonary embolism, thoracic aortic dissection or aneurysm. RADIATION DOSE DELIVERED: 269.74mGy.cm Total DLP DATA REPOSITORY: All CT scans at this facility are submitted to the National Radiology Data Registry (NRDR) Dose Index Registry (DIR) with the [employer] ([employer]). RADIATION OPTIMIZATION: All CT scans at this facility use at least one of these dose optimization te chniques: automated exposure control; mA and/or kV adjustment per patient size (includes targeted exa ms where dose is matched to clinical indication); or iterative reconstruction.
[2023-06-12] MEDS: Normal Saline - Diluent 50 ML VIAL IJ (09:01)
[2023-06-12] MEDS: Omnipaque 350 MG/ML 500 ML BTL-Imaging package IJ (09:02)
== END ==
PROVIDERS: PCP Family Medicine; Visit Provider Nurse Practitioner Family
DX: R06.02 Shortness of breath (principal); R07.89 Other chest pain; U07.1 COVID-19
CPT/HCPCS: 71275

== ENCOUNTER 2023-09-19 10:23 | Outpatient (REF) | payer MEDICARE, SELFPAY ==
[2023-09-19 12:59] LABS: Bilirubin Negative (Negative); Blood Small (Negative); Clarity Cloudy (Clear); Glucose Negative (Negative); Ketones Negative (Negative); Leukocyte Esterase Trace (Negative); Nitrite Negative (Negative); Specific Gravity 1.025 (1.005-1.025); Urobilinogen 0.2 mg/dL (Up to 0.2); pH 5.5 (5-8)
[2023-09-19 13:14] LABS: Bacteria Negative HPF (Negative); Epithelial Cells Moderate HPF (Negative); RBC 0-2 HPF (0-2)
[2023-09-19 13:15] LABS: C & S Indicated? No/Sq. Contamination; Casts Negative LPF (Negative); Crystals Few Calcium Oxalate HPF (Negative); Mucus Negative (Negative)
== END 2023-09-19 10:24 | disposition home or self-care (01) ==
LOC: LBN 10:23
PROVIDERS: PCP Family Medicine; Referring Provider Family Medicine; Visit Provider Family Medicine
DX: R39.89 Other symptoms and signs involving the genitourinary system (principal)
CPT/HCPCS: 81003; 81015

== ENCOUNTER → 2024-02-12 01:11 | Outpatient (CLI) | payer MEDICARE, SELFPAY ==
--- NOTE | 2024-02-12 07:30 | DI.MAMMO_ITS ---
Exam(s) MAMMO SCREENING EXAM: MAMMO SCREENING CLINICAL HISTORY: screening, Z12.39 TECHNIQUE: Mammograms were interpreted according to the usual protocol including computer analysis w [employer] CAD system, tomosynthesis and C-view imaging. COMPARISON: FINDINGS: The breasts are composed of heterogeneously dense fibroglandular densities, Breast Density category C . No suspicious masses or suspicious microcalcifications are seen. No skin thickening or abnormal axillary lymph nodes are seen. There has been no significant change from prior exams. The previously questioned nodule in the poste rior left breast is longer seen. IMPRESSION: BI-RADS Category 1, Negative mammogram. Yearly screening mammography is recommended. Breast Density Category C, heterogeneously Dense. The mammogram demonstrates the patient's breast tissue is dense. Dense breast tissue is very common a nd is not abnormal but dense breast tissue can make it harder to find cancer on a mammogram. Also, de nse breast tissue may increase breast cancer risk. This information about the result of the mammogram report was provided to the patient to raise their awareness. Use this report when you speak with the patient about their risks for breast cancer, which includes their family history. At that time, you may recommend additional screening tests (Ultrasound or MRI) as they might be useful based on their r isk. A negative radiographic report should not delay biopsy if a dominant or clinically suspicious mass is present. Up to ten percent of cancers are not identified on mammography. A negative report may reinforce clinical impression. Adenosis and dense breasts may obscure an underlying neoplasm. False positive reports average 6 to 10%.
== END ==
PROVIDERS: PCP Family Medicine; Visit Provider Family Medicine
DX: Z12.31 Encounter for screening mammogram for malignant neoplasm of breast (principal)
CPT/HCPCS: 77063; 77067

== ENCOUNTER → 2024-04-13 00:53 | Outpatient (CLI) | payer MEDICARE, SELFPAY ==
--- NOTE | 2024-04-13 06:30 | DI.US_ITS ---
Exam(s) US ABDOMEN EXAM: US ABDOMEN CLINICAL HISTORY: increased abdonimal girth,R19.8 TECHNIQUE: Ultrasound abdomen performed using standard protocol. COMPARISON: CT CT CHEST PE CTA from 06/12/2023 FINDINGS: LIVER: Normal size and echogenicity. No focal liver lesions are seen. GALLBLADDER: No evidence of cholelithiasis. No evidence of wall thickening. No pericholecystic fluid identified. TELLES'S SIGN: Negative. BILIARY SYSTEM: No intrahepatic or extrahepatic biliary ductal dilation. KIDNEYS: Kidneys are symmetric in size. No evidence of renal calculi. No evidence of hydronephrosis. bilateral cysts. No evidence of suspicious mass. PANCREAS: Normal where visualized. SPLEEN: Not enlarged. ABDOMINAL AORTA AND IVC: Visualized portions normal caliber. ASCITES: None seen. IMPRESSION: No acute abnormality. DATA REPOSITORY:
--- NOTE | 2024-04-13 08:59 | DI.RAD_ITS ---
Exam(s) XR CHEST 2V PA LATERAL EXAM: XR CHEST 2V PA LATERAL CLINICAL HISTORY: chest congestion,r09.89 TECHNIQUE: 2D digital imaging was performed. Two views. COMPARISON: CT CT CHEST PE CTA from 06/12/2023 FINDINGS: HEART: Normal size. Aorta: Not dilated. PULMONARY VASCULATURE: Normal. MEDIASTINUM: Unremarkable. LUNGS: Clear. PLEURAL SPACE: No pleural effusion or pneumothorax. BONE:Unremarkable for age. SOFT TISSUES: Unremarkable. IMPRESSION: No acute abnormality. DATA REPOSITORY: RADIATION DOSE DELIVERED:
== END ==
PROVIDERS: PCP Family Medicine; Visit Provider Family Medicine
DX: R09.89 Other specified symptoms and signs involving the circulatory and respiratory systems (principal); R19.8 Other specified symptoms and signs involving the digestive system and abdomen
CPT/HCPCS: 71046; 76700

== ENCOUNTER 2024-11-04 02:36 | Outpatient (CLI) | payer MEDICARE, SELFPAY ==
[2024-11-04 13:16] LABS: ALT 28 U/L (14-59); AST 20 U/L (15-37); Albumin 3.8 g/dL (3.4-5.0); Alkaline Phosphatase 105 U/L (46-116); Anion Gap 8.7 mmol/L (3-11); BUN 21 mg/dL (7-18); CO2 25.3 mmol/L (21.0-32.0); Calcium 9.1 mg/dL (8.5-10.1); Chloride 107 mmol/L (98-107); Estimated GFR 58.02 (mL/min/1.73m2); Glucose 90 mg/dL (74-106); Potassium 4.2 mmol/L (3.5-5.1); Sodium 141 mmol/L (136-145); Total Protein 7.3 g/dL (6.4-8.2)
[2024-11-05 11:16] LABS: Hepatitis C Ab w Rflx HCV PCR Negative (Negative)
== END 2024-11-04 02:37 | disposition home or self-care (01) ==
LOC: LBO 02:36
PROVIDERS: PCP Family Medicine; Visit Provider Family Medicine
DX: I10 Essential (primary) hypertension (principal); Z11.59 Encounter for screening for other viral diseases
CPT/HCPCS: 36415; 80053; 86803

== ENCOUNTER 2025-04-02 00:31 | Outpatient (CLI) | payer MEDICARE, SELFPAY ==
--- NOTE | 2025-04-02 | DI.MAMMO_ITS ---
Exam(s) MAMMO SCREENING EXAM: MAMMO SCREENING CLINICAL HISTORY: screening, Z12.39. TECHNIQUE: Bilateral full field digital CC and MLO mammographic images were obtained with 3D tomosynthesis and utilizing computer aided detection (CAD). COMPARISON: Prior mammograms were reviewed. FINDINGS: There has been no significant change in the appearance and distribution of the fibroglandular tissue. There are no new spiculated masses nor malignant appearing microcalcification groups. There is no significant architectural distortion nor skin thickening-retraction. IMPRESSION: No radiographic evidence of malignancy. BI-RADS Category 1 - Negative Breast Density - Category B - There are scattered areas of fibroglandular density. Breast density Category C or D implies that the patient has dense breast tissue. Dense breast tissue can make it harder to find cancer on a mammogram. Dense breast tissue is also associated with an increased risk of breast cancer. This information about the result of the mammogram report was provided to the patient to raise their awareness. Use this report when you speak with the patient about their risks for breast cancer, which includes their family history. At that time, you may recommend additional screening tests (Ultrasound or MRI) as these tests may add significant information. A negative radiographic report should not delay biopsy if a dominant or clinically suspicious mass is present. Up to ten percent of cancers are not identified on mammography. A negative report may reinforce clinical impression. Adenosis and dense breasts may obscure an underlying neoplasm. False positive reports average 6 to 10%. Patient will receive a letter notifying them of these results.
== END 2025-04-02 00:51 ==
PROVIDERS: PCP Family Medicine; Visit Provider Family Medicine
DX: Z12.31 Encounter for screening mammogram for malignant neoplasm of breast (principal); R92.323 Mammographic fibroglandular density, bilateral breasts
CPT/HCPCS: 77063; 77067

== ENCOUNTER 2025-04-22 10:27 | Outpatient (CLI) | payer MEDICARE, SELFPAY ==
[2025-04-22 12:51] LABS: Hemoglobin A1C 5.4 % (<5.7)
[2025-04-22 13:19] LABS: Calculated LDL 116 mg/dL (<100); Cholesterol 218 mg/dL (<200); HDL Cholesterol 56 mg/dL (>or=50); TSH (W/Ref FT4) 1.01 uIU/mL (0.36-3.74); Triglyceride 232 mg/dL (<150); Vitamin B12 291 pg/mL (193-986)
== END 2025-04-22 10:28 | disposition home or self-care (01) ==
LOC: LOS 10:27
PROVIDERS: PCP Family Medicine; Visit Provider Family Medicine
DX: E03.9 Hypothyroidism, unspecified (principal); I10 Essential (primary) hypertension; E11.9 Type 2 diabetes mellitus without complications; E53.8 Deficiency of other specified B group vitamins
CPT/HCPCS: 36415; 80061; 82607; 83036; 84443